=== PATIENT | female | born 1960 | race Caucasian/White ===

== ENCOUNTER → 2016-06-02 | Outpatient (CLI) | payer OTHER ==
[~2016-06-02] MED LIST: ACET-749 PO; ALT/25 PO; ATOR10TA88 PO; B-COCAP2 PO; CALC1CHW57 PO; CETI10TA10 PO; CLOTCRE33 TOP; CYAN10005 PO; DOXY100C76 PO; DULO60CA44 PO; ESTR1CRE PV; ESTR1CRE VAGRING; FLV1 PO; GLC/500 PO; INSU70IN2 SC; INSUINJ7 SC; LEVA1NEB19 INH; METO-157 PO; MOME200A INH; MONT1TAB3 PO; OMEG500C2 PO; OMEP20TA PO; PRED20TA PO; PREG225C PO; RANI300T2 PO; TORS20TA2 PO; TRIA0.1C20 TOP
[2016-06-02 13:12] LABS: ALT/SGPT 24 U/L (12-78); AST/SGOT 14 U/L (15-37); BLOOD UREA NITROGEN 13 mg/dl (7-18); BUN/CREATININE RATIO 16.4 (10-20); CALCIUM 8.4 mg/dl (8.5-10.1); CARBON DIOXIDE 28 mmol/L (21-32); CHLORIDE 108 mmol/L (98-107); CREATININE 0.79 mg/dl (0.60-1.20); GLUCOSE 113 mg/dl (70-99); POTASSIUM 4.2 mmol/L (3.5-5.1); SODIUM 144 mmol/L (136-145)
[2016-06-02 13:25] LABS: ALB/GLOB RATIO 1.1 (0.9-2); ALKALINE PHOSPHATASE 75 U/L (45-117); CHOLESTEROL 168 mg/dl (0-200); CHOLESTEROL/HDL RATIO 3.7; ESTIMATED AVERAGE GLUCOSE 148 mg/dl; HA1C FLAG Normal (Normal); HDL CHOLESTEROL 45 mg/dl; LDL CHOLESTEROL CALCULATED 104 mg/dl; THYROID STIMULATING HORMONE 0.866 uIu/ml (0.300-4.500); TRIGLYCERIDES 93 mg/dl (0-150); VERY LOW DENSITY LIPOPROT CALC 19 mg/dl
== END | disposition home or self-care (01) ==
LOC: C.LABPBG 10:31
PROVIDERS: ATTEND Neuromusculoskeletal Medicine & OMM
DX: E11.9 Type 2 diabetes mellitus without complications (principal)

== ENCOUNTER → 2016-09-01 | Outpatient (CLI) | payer OTHER ==
[~2016-09-01] MED LIST changes: +ATOR10TA82 PO; -ATOR10TA88 PO
[2016-09-02 07:32] LABS: ESTIMATED AVERAGE GLUCOSE 154 mg/dl; HA1C FLAG Normal (Normal)
== END | disposition home or self-care (01) ==
LOC: C.LABPBG 15:37
PROVIDERS: ATTEND Neuromusculoskeletal Medicine & OMM
DX: E11.9 Type 2 diabetes mellitus without complications (principal)

== ENCOUNTER → 2016-09-23 | Outpatient (CLI) | payer OTHER ==
--- NOTE | 2016-09-23 16:16 | MAMMOGRAPHY REPORT ---
BILATERAL DIGITAL SCREENING MAMMOGRAM TOMOSYNTHESIS WITH CAD: 09/23/2016 CLINICAL HISTORY: Routine screening. Patient has no complaints. TECHNIQUE: Breast tomosynthesis in addition to standard 2D mammography was performed. Current study was also evaluated with a Computer Aided Detection (CAD) system. COMPARISON: Comparison is made to exams dated: 08/17/2015 mammogram, 08/11/2014 mammogram, 08/07/2013 m ammogram, 07/27/2011 mammogram, 07/07/2010 mammogram, and 07/30/2012 mammogram. BREAST COMPOSITION: The tissue of both breasts is almost entirely fatty. FINDINGS: No suspicious masses, calcifications, or areas of architectural distortion are noted in ei ther breast. There has been no significant interval change compared to prior exams. IMPRESSION: ACR BI-RADS CATEGORY 1: NEGATIVE There is no mammographic evidence of malignancy. A 1 year screening mammogram is recommended. The pa tient will receive written notification of the results. Approximately 10% of breast cancers are not detected with mammography. A negative mammographic report should not delay biopsy if a clinically suggestive mass is present. Bernadine Carranza M.D. /:09/23/2016 15:23:33 Cable Assembler: Kylee CEDENO(R)(M), [facility] letter sent: Normal 1/2 BI-RADS Code: ACR BI-RADS Category 1: Negative
== END | disposition home or self-care (01) ==
LOC: C.MAMM 09:27
PROVIDERS: ATTEND Obstetrics & Gynecology
DX: Z12.31 Encounter for screening mammogram for malignant neoplasm of breast (principal)

== ENCOUNTER → 2016-12-01 | Outpatient (CLI) | payer OTHER ==
[~2016-12-01] MED LIST changes: -ATOR10TA82 PO; +ATOR10TA88 PO
[2016-12-01 12:36] LABS: ESTIMATED AVERAGE GLUCOSE 148 mg/dl; HA1C FLAG Normal (Normal)
== END | disposition home or self-care (01) ==
LOC: C.LABPBG 09:45
PROVIDERS: ATTEND Neuromusculoskeletal Medicine & OMM
DX: E11.9 Type 2 diabetes mellitus without complications (principal)

== ENCOUNTER → 2017-05-08 | Outpatient (CLI) | payer OTHER ==
[~2017-05-08] MED LIST changes: +ATOR10TA82 PO; -ATOR10TA88 PO; -B-COCAP2 PO; -CALC1CHW57 PO; +CHOLCAP5 PO; +CYAN100020 PO; -CYAN10005 PO; -DOXY100C76 PO; -ESTR1CRE VAGRING; +FLUT0.15; +FLUT1INH7 INH; -FLV1 PO; +GABA-112 PO; +GABA1CAP5 PO; +INSU1INJ SC; -INSUINJ7 SC; +LEVA45AE INH; +MELO7.5T5 PO; -MOME200A INH; +MULT-506 PO; -OMEG500C2 PO; -PRED20TA PO; -PREG225C PO; -RANI300T2 PO; +TIZA4CAP PO; -TRIA0.1C20 TOP; +TURM500T PO
[2017-05-08 12:26] LABS: ALBUMIN 3.4 gm/dl (3.4-5.0); ALT/SGPT 25 U/L (12-78); BLOOD UREA NITROGEN 13 mg/dl (7-18); CARBON DIOXIDE 26 mmol/L (21-32); CHOLESTEROL 161 mg/dl (0-200); CREATININE 0.73 mg/dl (0.60-1.20); GLUCOSE 169 mg/dl (70-99); HEMOGLOBIN A1C 6.7 % (4.5-5.6); POTASSIUM 4.4 mmol/L (3.5-5.1); SODIUM 140 mmol/L (136-145)
[2017-05-08 12:36] LABS: ALKALINE PHOSPHATASE 78 U/L (45-117); AST/SGOT 18 U/L (15-37); LDL CHOLESTEROL CALCULATED 100 mg/dl; TOTAL PROTEIN 6.7 gm/dl (6.4-8.2)
== END | disposition home or self-care (01) ==
LOC: C.LABPBG 08:47
PROVIDERS: ATTEND Family Medicine
DX: E11.9 Type 2 diabetes mellitus without complications (principal)

== ENCOUNTER → 2017-06-30 | Outpatient (CLI) | payer OTHER ==
[~2017-06-30] MED LIST changes: +GABA-1220 PO; -GABA1CAP5 PO
--- NOTE | 2017-06-30 07:38 | DIAGNOSTIC IMAGING REPORT ---
LUMBAR SPINE W/O CONTRAST HISTORY: Back pain. Radiculopathy. LUMBAR RADICULOPATHY TECHNIQUE: Multiplanar multisequence MRI of the lumbar spine was performed without the use of contrast. COMPARISON: None. FINDINGS: For the purpose of the report the L5-S1 disc space will be located on axial image 23 of 25. Normal signal characteristics of the vertebral bodies. Mild disc desiccation throughout the entire lumbar region. No evidence for subluxation. L1-L2: No significant central canal or neural foraminal narrowing. L2-L3: Mild broad-based disc herniation. Mild impact of the left central anterior thecal sac. Mild narrowing left neuroforamina. L3-L4: Broad-based bulging disc. Minimal impact anterior thecal sac. No significant narrowing of the neuroforamina. L4-L5: Mild broad-based disc bulge. Minimal impact left anterior thecal sac. Mild narrowing left neural foramina. L5-S1: Left lateral bulging disc. Moderate narrowing left neuroforamina. No significant impact upon the thecal sac. Moderate degenerative changes of posterior facets IMPRESSION: 1. Mild degenerative disc change throughout the entire lumbar region with moderate degenerative change of the posterior facets. 2. Broad-based bulging discs throughout the entire lumbar region with no evidence for major disc herniation or significant component of spinal stenosis. 3. Mild narrowing of the left neural foramina at L2-L3, L4-L5, and L5-S1. The above report was generated using voice recognition software. It may contain grammatical, syntax or spelling errors. Electronically signed by: Ted Duncan M.D. 06/30/2017 7:36 AM Dictated Date/Time: 06/30/2017 7:32 AM
== END | disposition home or self-care (01) ==
LOC: C.MRI 06:51
PROVIDERS: ATTEND Physician Assistant Medical
DX: M54.16 Radiculopathy, lumbar region (principal); M51.36 Other intervertebral disc degeneration, lumbar region

== ENCOUNTER 2021-01-18 15:27 | Inpatient (IN) ==
[2021-01-18] MEDS ORDERED: ACETAMINOPHEN 500 MG TAB PO STA (16:54)
[2021-01-18] MEDS ORDERED: dexAMETHasone 6 MG in SYRINGE 0 ML IV ONE (18:01)
[2021-01-18 18:31] LABS: Hematocrit (blood only) 39.3 % (37-47); Hemoglobin 12.8 g/dL (12.0-16.0); Mean Corpuscular Hemoglobin 26.8 pg (25-34); Mean Corpuscular Hgb Conc 32.6 g/dL (32-36); Mean Corpuscular Volume 82.4 fL (80-100); Mean Platelet Volume 10.9 fL (7.4-10.4); Platelet Count 176 K/uL (130-400); RDW Coefficient of Variation 14.4 % (11.5-14.5); RDW Standard Deviation 43.5 fL (36.4-46.3); Red Blood Count 4.77 M/uL (4.2-5.4); White Blood Count 12.68 K/uL (4.8-10.8)
[2021-01-18] MEDS ORDERED: DEXAMETHASONE SOD INJ 4 MG/ML VIAL ONE (18:32)
--- NOTE | 2021-01-18 18:32 | XRay Report ---
XR chest 1V portable HISTORY: +Covid, cough and SOB COMPARISON: Chest 06/28/2019. FINDINGS: There are low lung volumes. No pneumothorax. No pleural effusions. Cardiac silhouette is humphrey rderline enlarged. Patchy bilateral airspace opacities and interstitial thickening. IMPRESSION: Patchy bilateral airspace opacities and interstitial thickening. This favors a viral pneumonia. ACT 112: Negative or not required by law. Electronically signed by: Rick Block M.D. 01/18/2021 6:31 PM
--- NOTE | 2021-01-18 18:44 | Emergency Department Note ---
History of Present Illness General Chief complaint: Shortness of Breath/Dyspnea History of Present Illness Kylee Harrington is a 60 year old female with history of [] Home Medications Medication Instructions Recorded Confirmed Type fluticasone propionate 50 2 sprays INTNAS QAM 02/08/18 12/23/20 History mcg/actuation nasal spray,suspension (Flonase Allergy Relief) cholecalciferol (vitamin D3) 125 5,000 units PO QAM cap 12/04/18 12/23/20 History mcg (5,000 unit) capsule gentamicin 0.1 % topical cream 1 appln TOPICAL DAILY PRN #1 gm 12/04/18 12/23/20 History acetaminophen 500 mg capsule 500 mg PO TID PRN 12/06/19 12/23/20 History clotrimazole-betamethasone 1 1 appln TOPICAL BID PRN 12/06/19 12/23/20 History %-0.05 % topical cream esomeprazole magnesium 40 mg 40 mg PO BID 12/06/19 12/23/20 History capsule,delayed release (Nexium) coQ10 (ubiquinol) 200 mg capsule 200 mg PO BID 02/13/20 12/23/20 History vitamin B complex 1 tab PO BID 02/13/20 12/23/20 History famotidine 20 mg tablet 20 mg PO BID tab 04/06/20 12/23/20 History glucagon 3 mg/actuation nasal 3 mg INTRANASAL ONCE #2 ea 04/21/20 12/23/20 Rx spray (Baqsimi) aspirin 81 mg tablet,delayed 81 mg PO DAILY #30 tab 05/01/20 12/23/20 Rx release nitroglycerin 0.4 mg sublingual 0.4 mg SUBLINGUAL Q5M PRN #30 tab 05/01/20 12/23/20 Rx tablet pen needle, diabetic 31 gauge x #100 ea 06/10/20 12/23/20 Rx 5/16" (BD Ultra-Fine Short Pen Needle) torsemide 20 mg tablet 10 mg PO QAM #45 tab 07/21/20 12/23/20 Rx erythromycin 500 mg tablet 500 mg PO TID tab 08/24/20 12/23/20 History tramadol 50 mg tablet See Rx Instructions PO TID PRN #30 10/20/20 12/23/20 Rx tab duloxetine 60 mg capsule,delayed 60 mg PO DAILY cap 10/30/20 12/23/20 History release flash glucose scanning reader #1 ea 10/30/20 12/23/20 History (FreeStyle Jeremy 2 [place]) flash glucose sensor (FreeStyle #1 ea 10/30/20 12/23/20 History Jeremy 2 Sensor) blood sugar diagnostic (OneTouch ea 11/09/20 12/23/20 History Ultra Blue Test Strip) ibuprofen 600 mg tablet 600 mg PO TID PRN 11/09/20 12/23/20 History fluconazole 150 mg tablet 150 mg PO .COMPLEX #3 tab 11/19/20 12/23/20 Rx (Diflucan) tizanidine 4 mg capsule 4 mg PO HS PRN #30 cap 11/19/20 12/23/20 Rx atorvastatin 80 mg tablet 80 mg PO HS #90 tab 11/20/20 12/23/20 Rx clopidogrel 75 mg tablet 75 mg PO DAILY #90 tab 11/20/20 12/23/20 Rx gabapentin 400 mg capsule 400 mg PO TID #90 cap 11/20/20 12/23/20 Rx conjugated estrogens 0.625 mg/gram 0.625 mg VAGINAL WEEKLY #30 g 11/23/20 12/23/20 Rx vaginal cream (Premarin) montelukast 10 mg tablet 10 mg PO QPM #90 tab 11/30/20 12/23/20 Rx (Singulair) cetirizine 10 mg tablet (Zyrtec) 10 mg PO DAILY PRN 12/23/20 12/23/20 History dextromethorphan-guaifenesin 10 1 tab-cap PO Q8H PRN 12/23/20 12/23/20 History mg-200 mg capsule (Coricidin HBP Chest Congestion-Cough) insulin glargine 100 unit/mL (3 63 unit SUBCUT DAILY box 12/23/20 12/23/20 Hist ory mL) subcutaneous pen (Lantus Solostar U-100 Insulin) ramipril 2.5 mg capsule (Altace) 2.5 mg PO PM #90 cap 12/30/20 Rx insulin regular human 100 unit/mL See Rx Instructions SUBCUT TID #30 01/01/21 Rx (3 mL) subcutaneous pen (Novolin R ml Flexpen) fluticasone furoate 200 1 inh INHALATION QAM #60 ea 01/12/21 Rx mcg-vilanterol 25 mcg/dose inhalation powder (Breo Ellipta) metformin 500 mg tablet,extended 1,000 mg PO BID #180 tab 01/12/21 Rx release 24 hr levalbuterol HCl 1.25 mg/3 mL 1.25 mg INH TID PRN #72 ml 01/14/21 Rx solution for nebulization (Xopenex) levalbuterol tartrate 45 1 - 2 puff INH Q4H PRN #15 gm 01/14/21 Rx mcg/actuation aerosol inhaler (Xopenex HFA) metoclopramide HCl 10 mg tablet 10 mg PO QID #120 tab 01/14/21 Rx (Reglan) Allergies Allergy/AdvReac Type Severity Reaction Status Date / Time Sulfa (Sulfonamide Allergy Unknown RASH Verified 12/23/20 16:14 Antibiotics) fluticasone AdvReac Intermediate Tachycardia, Verified 12/23/20 16:14 [From Advair Diskus] palpitations salmeterol AdvReac Intermediate Tachycardia, Verified 12/23/20 16:14 [From Advair Diskus] palpitations Past Med/Surg History Medical History Anxiety Arthritis, lumbar spine Asthma CAD (coronary artery disease) Carpal tunnel syndrome of right wrist Charcot's joint of foot Chronic venous insufficiency Depression Diabetes mellitus, type 2 Endometriosis Fibromyalgia Gastroparesis GERD (gastroesophageal reflux disease) History of MRSA infection History of pneumococcal pneumonia Hyperlipidemia Hypertension Lumbar disc disease Osteoarthritis PCOS (polycystic ovarian syndrome) Peripheral neuropathy Sciatic pain Seasonal allergies Trigger thumb of right hand Type 2 diabetes mellitus with diabetic neuropathy Surgical History H/O: hysterectomy History of carpal tunnel release History of esophagogastroduodenoscopy (EGD) History of heart artery stent (05/04/20) S/P repair of ventral hernia S/P tonsillectomy and adenoidectomy S/P total hysterectomy and bilateral salpingo-oophorectomy S/P trigger finger release Family History Father Diabetes Coronary heart disease Hx of CABG Mother Breast cancer S/P CABG (coronary artery bypass graft) Sister Breast cancer Denies family history of Ovarian cancer Prostate cancer Myocardial infarction Colorectal cancer Social History Smoking Status: Unknown if ever smoked Tobacco Type: Cigarettes Age Started Using Tobacco: 21; Age Quit Using Tobacco: 25; packs per day: 1; Years Smoked: 4; Second Hand Exposure: No; Hx Alcohol Use: Yes Alcohol type: wine Alcohol Intake Frequency: Monthly or Less Hx Substance Use: No Preferred Language: Mauritian Communication Ability: Effective Visual Impairment: No Limitations Hearing Ability: Normal 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 Beliefs That Will Affect Care: None marital status: Current Living Situation: Spouse Current Living Situation Comment: , who is a quadraplegic current occupational status: employed Feels Safe at Home: Yes Childhood Exposure to Second-Hand Smoke: Yes caffeine: Yes during the past year weight has: remained stable Dental Care, Regularly: Yes Physical Activity Frequency: 1-2 Times per Week Physical Activity Frequency Comment: walking,gym Seatbelt Use: always Sunscreen Use: No Assistive Devices: Cane and Glasses Physical Exam Vital Signs Vital Signs - 24 hr 01/18/21 15:47 01/18/21 17:13 Temperature 37.7 C H Temperature Source Oral Pulse Rate 100 H Respiratory Rate 20 Respiratory Effort / Characteristics Non-Labored Respiratory Depth Normal Respiratory Pattern Regular Blood Pressure 114/52 L Blood Pressure Mean 72 Pulse Oximetry 93 85 L Oxygen Delivery Method Nasal Cannula Room Air Oxygen Flow Rate 2 Sepsis Recent Fever Within 48 Hours Yes Sepsis New/Unexplained Change in Mental Status No Sepsis Action Taken by Nursing No Action Required Pulse Oximetry Post Tiitration 94 Course Administered Medications Discontinued Medications Acetaminophen (Acetaminophen 500 Mg Tab) 1,000 mg PO NOW STA Stop: 01/18/21 16:55 Last Admin: 01/18/21 18:36 Dose: 1,000 mg Documented by: [id number] Dexamethasone (Dexamethasone Sod Inj 4 Mg/Ml Vial) Confirm Administered Dose 8 mg .ROUTE .STK-MED ONE Stop: 01/18/21 18:33 Last Admin: 01/18/21 18:37 Dose: 6 mg Documented by: [id number] Dexamethasone 6 mg/ Syringe 1.5 mls @ 1 mls/min IV ONE ONE Stop: 01/18/21 18:02 Last Admin: 01/18/21 18:39 Dose: 1 mls/min Documented by: [id number] Medical Decision Making Laboratory Data Result diagrams: 01/18/21 18:15 01/18/21 18:15 Lab Results 01/18/21 01/18/21 01/18/21 Range/Units 18:15 18:15 18:15 WBC 12.68 H (4.8-10.8) K/uL RBC 4.77 (4.2-5.4) M/uL Hgb 12.8 (12.0-16.0) g/dL Hct 39.3 (37-47) % MCV 82.4 (80-100) fL MCH 26.8 (25-34) pg MCHC 32.6 (32-36) g/dL RDW Std Deviation 43.5 (36.4-46.3) fL RDW Coeff of Michael 14.4 (11.5-14.5) % Plt Count 176 (130-400) K/uL MPV 10.9 H (7.4-10.4) fL Immature Gran % (Auto) 0.3 % Neut % (Auto) 85.9 % Lymph % (Auto) 8.2 % [place] % (Auto) 5.6 % Eos % (Auto) 0.0 % Baso % (Auto) 0.0 % Neut # (Auto) 10.89 H (1.4-6.5) K/uL Lymph # (Auto) 1.04 L (1.2-3.4) K/uL [place] # (Auto) 0.71 H (0.11-0.59) K/uL Eos # (Auto) 0.00 (0-0.5) K/uL Baso # (Auto) 0.00 (0-0.2) K/uL Immature Gran # (Auto) 0.04 H (0.00-0.02) K/uL Polychromasia 1+ VBG pH 7.40 (7.36-7.41) VBG pCO2 43 (38-50) mmHg VBG pO2 24 mmHg VBG HCO3 26 mmol/L VBG O2 Saturation < 60.0 % VBG Base Excess 1.2 mEq/L Barometric Pressure 728.4 mm/Hg Lactate 1.6 (0.4-2.0) mmol/L Imaging Data Radiologist's Impression: Chest X-Ray 01/18/21 16:54 XR chest 1V portable HISTORY: +Covid, cough and SOB COMPARISON: Chest 06/28/2019. FINDINGS: There are low lung volumes. No pneumothorax. No pleural effusions. Cardiac silhouette is borderline enlarged. Patchy bilateral airspace opacities and interstitial thickening. IMPRESSION: Patchy bilateral airspace opacities and interstitial thickening. This favors a viral pneumonia. ACT 112: Negative or not required by law. Electronically signed by: Rick Block M.D. 01/18/2021 6:31 PM Discharge Plan Visit Data Chief Complaint: Shortness of Breath/Dyspnea ED Provider: [facility] Midlevel Provider: Megan Hogan Forms Stand Alone Forms: [facility] [employer] Prescriptions Prescriptions: No Action fluticasone propionate [Flonase Allergy Relief] 50 mcg/actuation spray,suspension 2 sprays INTNAS QAM RF: 0 torsemide 20 mg tablet 10 mg PO QAM Qty: 45 RF: 1 gabapentin 400 mg capsule 400 mg PO TID Qty: 90 RF: 5 montelukast [Singulair] 10 mg tablet 10 mg PO QPM Qty: 90 RF: 3 ramipril [Altace] 2.5 mg capsule 2.5 mg PO PM Qty: 90 RF: 1 Novolin R Flexpen 100 unit/mL (3 mL) insulin pen See Rx Instructions subcut TID Qty: 30 RF: 1 Breo Ellipta 200-25 mcg/dose blister with device 1 inh inhalation QAM Qty: 60 RF: 5 metformin 500 mg tablet extended release 24 hr 1,000 mg PO BID Qty: 180 RF: 1 levalbuterol HCl [Xopenex] 1.25 mg/3 mL solution for nebulization 1.25 mg INH TID PRN (Reason: shortness of breath or wheezing) Qty: 72 RF: 3 levalbuterol tartrate [Xopenex HFA] 45 mcg/actuation HFA aerosol inhaler 1 - 2 puff INH Q4H PRN (Reason: shortness of breath) Qty: 15 RF: 3 metoclopramide HCl [Reglan] 10 mg tablet 10 mg PO QID Qty: 120 RF: 5 duloxetine 60 mg capsule,delayed release(DR/EC) 60 mg PO DAILY RF: 0 (DME) FreeStyle Jeremy 2 Sensor Kit See Rx Instructions .ROUTE .MEDSUPPLY Qty: 1 RF: 0 (DME) FreeStyle Jeremy 2 [place] Misc See Rx Instructions .ROUTE .MEDSUPPLY Qty: 1 RF: 0 tramadol 50 mg tablet See Rx Instructions PO TID PRN (Reason: pain) Qty: 30 RF: 0 (DME) OneTouch Ultra Blue Test Strip Strip See Rx Instructions .ROUTE .MEDSUPPLY RF: 0 ibuprofen 600 mg tablet 600 mg PO TID PRNRF: 0 atorvastatin 80 mg tablet 80 mg PO HS Qty: 90 RF: 3 clopidogrel 75 mg tablet 75 mg PO DAILY Qty: 90 RF: 3 Lantus Solostar U-100 Insulin 100 unit/mL (3 mL) insulin pen 63 unit subcut DAILY RF: 0 (DME) pen needle, diabetic [BD Ultra-Fine Short Pen Needle] 31 gauge x 5/16" needle See Rx Instructions .ROUTE .MEDSUPPLY Qty: 100 RF: 3 fluconazole [Diflucan] 150 mg tablet 150 mg PO .COMPLEX Qty: 3 RF: 0 tizanidine 4 mg capsule 4 mg PO HS PRN (Reason: Spasms) Qty: 30 RF: 1 Premarin 0.625 mg/gram cream 0.625 mg Vaginal WEEKLY Qty: 30 RF: 0 Coricidin HBP Chest Matthew-Cough 10-200 mg capsule 1 tab-cap PO Q8H PRNRF: 0 cetirizine [Zyrtec] 10 mg tablet 10 mg PO DAILY PRNRF: 0 Baqsimi 3 mg/actuation spray,non-aerosol 3 mg intranasal ONCE Qty: 2 RF: 5 aspirin 81 mg tablet,delayed release (DR/EC) 81 mg PO DAILY Qty: 30 RF: 11 nitroglycerin 0.4 mg tablet, sublingual 0.4 mg sublingual Q5M PRN (Reason: chest pain) Qty: 30 RF: 3 erythromycin 500 mg tablet 500 mg PO TID RF: 0 cholecalciferol (vitamin D3) 5,000 unit capsule 5,000 units PO QAM RF: 0 gentamicin 0.1 % cream 1 appln topical DAILY PRN (Reason: AFFECTED AREA) Qty: 1 RF: 0 acetaminophen 500 mg Capsule 500 mg PO TID PRN (Reason: Pain) RF: 0 esomeprazole magnesium [Nexium] 40 mg capsule,delayed release(DR/EC) 40 mg PO BID RF: 0 clotrimazole-betamethasone 1-0.05 % cream 1 appln topical BID PRN (Reason: Skin Irritation) RF: 0 vitamin B complex Tablet 1 tab PO BID RF: 0 coQ10 (ubiquinol) 200 mg Capsule 200 mg PO BID RF: 0 famotidine 20 mg tablet 20 mg PO BID RF: 0 Referrals Referrals: Hoa Mcneil DO [Primary Care Provider] -
[2021-01-18 18:52] LABS: Immature Granulocytes # (auto) 0.04 K/uL (0.00-0.02); Immature Granulocytes % (auto) 0.3 %; Lymphocytes # (auto) 1.04 K/uL (1.2-3.4); Lymphocytes % (auto) 8.2 %; Monocytes # (auto) 0.71 K/uL (0.11-0.59); Monocytes % (auto) 5.6 %; Neutrophils # (auto) 10.89 K/uL (1.4-6.5); Neutrophils % (auto) 85.9 %; Polychromasia 1+
[2021-01-18 18:53] LABS: Base Excess VBG 1.2 mEq/L; HCO3 VBG 26 mmol/L; Oxygen Saturation VBG < 60.0 %; PCO2 VBG 43 mmHg (38-50); PO2 VBG 24 mmHg
[2021-01-18 19:20] LABS: Appearance Urine Cloudy (Clear); Bacteria Urine Automated 1+ (Negative); Bilirubin Urine Negative (Negative); Blood Urine Trace (Negative); Color Urine Dark Yellow; Epithelial Cell Urine Auto >30 /lpf (0-5); Glucose Urine UA Negative (Negative); Ketones Urine Trace (Negative); Leukocyte Esterase Urine Negative (Negative); Nitrite Urine Negative (Negative); Protein Urine 2+ (Negative); Specific Gravity Urine 1.019 (1.000-1.030); Urobilinogen Urine Negative (Negative); pH Urine 5.5 (4.5-7.5)
[2021-01-18 19:27] LABS: Alanine Aminotransferase 27 U/L (12-78); Albumin Globulin Ratio 0.5 (0.9-2); Albumin Level 2.7 gm/dl (3.4-5.0); Alkaline Phosphatase 73 U/L (45-117); Aspartate Aminotransferase 36 U/L (15-37); BUN Creatinine Ratio 10.3 (10-20); Bilirubin,Total 0.4 mg/dl (0.2-1); Blood Urea Nitrogen 12 mg/dl (7-18); Calcium 8.8 mg/dl (8.5-10.1); Carbon Dioxide 23 mmol/L (21-32); Chloride 102 mmol/L (98-107); Est GFR (Non-African American) 53.5 ml/min; Glucose 241 mg/dl (70-99); Potassium 3.9 mmol/L (3.5-5.1); Sodium 134 mmol/L (136-145); Total Protein 7.7 gm/dl (6.4-8.2); Troponin I < 0.015 ng/ml (0-0.045)
[2021-01-18 19:34] LABS: RBC Urine Automated 0-4 /hpf (0-4)
[2021-01-18] MEDS ORDERED: REMDESIVIR 200 MG in SODIUM CHLORIDE 0.9% 210 ML IV STA (20:40)
--- NOTE | 2021-01-18 20:49 | History & Physical Report ---
Date of Service January 18, 2021 Assessment & Plan (1) Pneumonia due to COVID-19 virus: Plan: Kylee Harrington is a 60-year-old female with PMH of DM2 with peripheral neuropathy, HTN, HLD, CAD, depression,, osteoarthritis, GERD, asthma, fibromyalgia, seasonal allergies who comes to [facility] due to worsening condition in the setting of her recent COVID-19 diagnosis. COVID-19 Pneumonia - Initially diagnosed 01/11/21 per patient - CXR with patchy bilateral opacities and interstitial thickening, favoring a viral pneumonia. - CT chest pending - COVID-19 retest pending - Requiring 3L NC to maintain O2 sat--continue O2 supplementation as needed - Diagnosis less than 10 days ago and creatinine clearance >30, meets criteria for remdesivir - Remdesivir 200mg IV x1 now, then 100mg IV daily x4 days - Decadron 6mg IV x1 in ED, continue 6mg IV daily x 10 days -Duonebs prn - Incentive spirometry - Admit to Telemetry - COVID-19 isolation precautions DM2 with Diabetic Neuropathy - Hold home insulin and metformin - Glycemic consult for BSG management while admitted - Continue home gabapentin Hypertension - Continue home ramipril CAD/Hyperlipidemia - Continue ASA, atorvastatin, Plavix Asthma/Allergic Rhinitis - Continue home, montelukast, Breo Ellipta, Flonase - duonebs prn Depression/Anxiety -Continue home duloxetine GERD -Continue home regimen of famotidine and PPI per hospital formulary DVT ppx: Lovenox 40mg SQ daily Dispo: Telemetry FENGI: HH, DM2 CODE: FULL CODE (2) Type 2 diabetes mellitus with diabetic neuropathy: (3) CAD (coronary artery disease): (4) Hypertension: (5) Hyperlipidemia: (6) Depression: (7) Anxiety: (8) GERD (gastroesophageal reflux disease): (9) Asthma: (10) Fibromyalgia: (11) Seasonal allergies: History of Present Illness Primary Care Provider: Hoa Mcneil DO Kylee Harrington is a 60-year-old female with PMH of DM2 with peripheral neuropathy, HTN, HLD, CAD, depression,, osteoarthritis, GERD, asthma, fibromyalgia, seasonal allergies who comes to [facility] due to worsening symptoms in the setting of her recent COVID-19 diagnosis. She was diagnosed with COVID-19 last 01/11/2021. She mentions that since her diagnosis she has been febrile and steadily worsening. Specifically, she says she has felt much weaker than usual to the point of needing to hold on to the martin for ambulation. She has also had worsening dry cough and shortness of breath. Reports being very sweaty. Also has diarrhea and reports various episodes of urinary incontinence. Her is also exhibiting symptoms and came into the ED today with with her, they are both in the room upon my evaluation. The patient and her are both fully COVID vaccinated with Pfizer vaccine as of May 2020. Upon arrival at the emergency room, patient was found to have oxygen saturation of 85% on room air. She was started on oxygen via nasal cannula, and on my evaluation is saturating at 97% on 3 L. She received acetaminophen 1000 mg, Decadron 6 mg IV x1. Chest x-ray in the ED showed patchy bilateral airspace opacities and interstitial thickening, favoring a viral pneumonia. Lab work showed a white count of 12.68, normal hemoglobin, normal platelets. VBG was unremarkable. Electrolytes nonconcerning, troponin negative, lactate normal 1.6. Allergies Allergy/AdvReac Type Severity Reaction Status Date / Time Sulfa (Sulfonamide Allergy Intermediate RASH Verified 01/19/21 07:25 Antibiotics) fluticasone AdvReac Intermediate Tachycardia, Verified 01/18/21 20:03 [From Advair Diskus] palpitations salmeterol AdvReac Intermediate Tachycardia, Verified 01/18/21 20:03 [From Advair Diskus] palpitations Home Medications Medication Instructions Recorded Confirmed Type fluticasone propionate 50 2 sprays INTNAS QAM 02/08/18 01/18/21 History mcg/actuation nasal spray,suspension (Flonase Allergy Relief) cholecalciferol (vitamin D3) 125 5,000 units PO QAM cap 12/04/18 01/18/21 History mcg (5,000 unit) capsule gentamicin 0.1 % topical cream 1 appln TOPICAL DAILY PRN #1 gm 12/04/18 01/18/21 History acetaminophen 500 mg capsule 1,000 mg PO TID PRN 12/06/19 01/18/21 History clotrimazole-betamethasone 1 1 appln TOPICAL BID PRN 12/06/19 01/18/21 History %-0.05 % topical cream esomeprazole magnesium 40 mg 40 mg PO BID 12/06/19 01/18/21 History capsule,delayed release (Nexium) coQ10 (ubiquinol) 200 mg capsule 200 mg PO BID 02/13/20 01/18/21 History vitamin B complex 1 tab PO BID 02/13/20 01/18/21 History famotidine 20 mg tablet 20 mg PO BID tab 04/06/20 01/18/21 History glucagon 3 mg/actuation nasal 3 mg INTRANASAL ONCE #2 ea 04/21/20 01/18/21 Rx spray (Baqsimi) aspirin 81 mg tablet,delayed 81 mg PO DAILY #30 tab 05/01/20 01/18/21 Rx release nitroglycerin 0.4 mg sublingual 0.4 mg SUBLINGUAL Q5M PRN #30 tab 05/01/20 01/18/21 Rx tablet torsemide 20 mg tablet 10 mg PO QAM #45 tab 07/21/20 01/18/21 Rx erythromycin 500 mg tablet 500 mg PO TID tab 08/24/20 01/18/21 History tramadol 50 mg tablet See Rx Instructions PO TID PRN #30 10/20/20 01/18/21 Rx tab duloxetine 60 mg capsule,delayed 60 mg PO DAILY cap 10/30/20 01/18/21 History release ibuprofen 600 mg tablet 600 mg PO TID PRN 11/09/20 01/18/21 History tizanidine 4 mg capsule 4 mg PO HS PRN #30 cap 11/19/20 01/18/21 Rx atorvastatin 80 mg tablet 80 mg PO HS #90 tab 11/20/20 01/18/21 Rx clopidogrel 75 mg tablet 75 mg PO DAILY #90 tab 11/20/20 01/18/21 Rx gabapentin 400 mg capsule 400 mg PO TID #90 cap 11/20/20 01/18/21 Rx conjugated estrogens 0.625 mg/gram 0.625 mg VAGINAL WEEKLY #30 g 11/23/20 01/18/21 Rx vaginal cream (Premarin) montelukast 10 mg tablet 10 mg PO QPM #90 tab 11/30/20 01/18/21 Rx (Singulair) cetirizine 10 mg tablet (Zyrtec) 10 mg PO DAILY PRN 12/23/20 01/18/21 History dextromethorphan-guaifenesin 10 1 tab-cap PO Q8H PRN 12/23/20 01/18/21 History mg-200 mg capsule (Coricidin HBP Chest Congestion-Cough) insulin glargine 100 unit/mL (3 63 unit SUBCUT QAM box 12/23/20 01/18/21 History mL) subcutaneous pen (Lantus Solostar U-100 Insulin) ramipril 2.5 mg capsule (Altace) 2.5 mg PO PM #90 cap 12/30/20 01/18/21 Rx insulin regular human 100 unit/mL See Rx Instructions SUBCUT TID #30 01/01/21 01/18/21 Rx (3 mL) subcutaneous pen (Novolin R ml Flexpen) fluticasone furoate 200 1 inh INHALATION QAM #60 ea 01/12/21 01/18/21 Rx mcg-vilanterol 25 mcg/dose inhalation powder (Breo Ellipta) metformin 500 mg tablet,extended 1,000 mg PO BID #180 tab 01/12/21 01/18/21 Rx release 24 hr levalbuterol HCl 1.25 mg/3 mL 1.25 mg INH TID PRN #72 ml 01/14/21 01/18/21 Rx solution for nebulization (Xopenex) levalbuterol tartrate 45 1 - 2 puff INH Q4H PRN #15 gm 01/14/21 01/18/21 Rx mcg/actuation aerosol inhaler (Xopenex HFA) metoclopramide HCl 10 mg tablet 10 mg PO QID #120 tab 01/14/21 01/18/21 Rx (Reglan) Past Med/Surg History Medical History Anxiety Arthritis, lumbar spine Asthma CAD (coronary artery disease) Abnormal Dobutamine stress echo led to cardiac cath on 05/04/20 and PCI of Mid LCx with 2 SUN's Carpal tunnel syndrome of right wrist hx Charcot's joint of foot left Chronic venous insufficiency wears support hose Depression Diabetes mellitus, type 2 Endometriosis Fibromyalgia Gastroparesis GERD (gastroesophageal reflux disease) History of MRSA infection History of pneumococcal pneumonia Hyperlipidemia Hypertension Lumbar disc disease Osteoarthritis PCOS (polycystic ovarian syndrome) Peripheral neuropathy upper and lower extremities Sciatic pain right sided pain currently Seasonal allergies Trigger thumb of right hand hx Type 2 diabetes mellitus with diabetic neuropathy Surgical History H/O: hysterectomy History of carpal tunnel release History of esophagogastroduodenoscopy (EGD) History of heart artery stent (05/04/20) S/P repair of ventral hernia S/P tonsillectomy and adenoidectomy S/P total hysterectomy and bilateral salpingo-oophorectomy S/P trigger finger release Family History Father Diabetes Coronary heart disease Hx of CABG Mother Breast cancer S/P CABG (coronary artery bypass graft) Sister Breast cancer Denies family history of Ovarian cancer Prostate cancer Myocardial infarction Colorectal cancer Social History Smoking Status: Former smoker Tobacco Type: Cigarettes Age Started Using Tobacco: 21; Age Quit Using Tobacco: 25; packs per day: 1; Years Smoked: 4; Second Hand Exposure: No; Do You Dip or Chew Tobacco: No; Tobacco Cessation Education Requested by Patient: No Hx Alcohol Use: Yes Alcohol type: wine Alcohol Intake Frequency: Monthly or Less Hx Substance Use: No Preferred Language: Turkish Communication Ability: Effective Visual Impairment: No Limitations Hearing Ability: Normal 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 Beliefs That Will Affect Care: None marital status: Current Living Situation: Family Current Living Situation Comment: , who is a quadraplegic current occupational status: employed Other Information That Helps Us Care for You: No Feels Safe at Home: Yes Safety Concerns: Feels Safe At This Time Childhood Exposure to Second-Hand Smoke: Yes caffeine: Yes during the past year weight has: remained stable Dental Care, Regularly: Yes Physical Activity Frequency: 1-2 Times per Week Physical Activity Frequency Comment: walking,gym Seatbelt Use: always Sunscreen Use: No Assistive Devices: Glasses and Oxygen - Continuous Review of Systems Constitutional: as per Subjective / HPI Respiratory: as per Subjective / HPI Cardiovascular: no chest pain and no palpitations Gastrointestinal: no nausea and no vomiting Genitourinary: + urinary incontinence Neurologic: no numbness and no paresthesia Physical Exam Physical Exam: GENERAL: A&Ox3. NAD. HEENT: PERRL, EOMI. Moist mucous membranes. NECK: No JVD. No lymphadenopathy. CHEST/LUNGS: Breathing comfortably on NC. Gets SOB with movement. Bilateral crackles throughout. No wheezes, rales, rhonchi. Coughing intermittently throughout evaluation. HEART: RRR. No m/g/r. No carotid bruits. ABDOMEN: NT/ND, soft. BS+ x4 EXTREMITIES: No cyanosis, no clubbing, no edema SKIN: Warm and dry. No rashes or lesions. PSYCHIATRIC: Euthymic affect, no SI, no pressured speech, no hallucinations NEUROLOGIC: No FND. CN II-XII grossly intact. Results & Data Results & Data ([facility]) Vital Signs (Past 12 Hours) Vital Signs Temp Pulse Resp BP Pulse Ox 01/18/21 17:13 85 L 01/18/21 15:47 37.7 C H 100 H 20 114/52 L 93 Supervising Physician Co-Signing Physician Notes Attending addendum: I have physically seen this patient, have supervised the medical residents activities, and agree with the H&P unless as otherwise noted. Assessment and Plan: Pneumonia due to COVID-19 virus with hypoxia- Pulse ox noted to be 85% on room air Nasal cannula oxygen, titrate to keep pulse ox 90 to 94% Dexamethasone 6 mg IV every morning Remdesivir IV per protocol Azithromycin 500 mg IV daily Duonebs every 4 hours while awake and every 2 hours when necessary. Guaifenesin extended release 1200 mg p.o. twice daily Vitamin D 1000 international units p.o. daily Zinc sulfate 220 mg p.o. 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 transplanted heart: [place] heart Qualified Code(s): I25.10 - Atherosclerotic heart disease of [place] coronary artery without angina pectoris (3) Hyperlipidemia Hyperlipidemia type: mixed hyperlipidemia Qualified Code(s): E78.2 - Mixed hyperlipidemia (4) Hypertension Hypertension type: essential hypertension Qualified Code(s): I10 - Essential (primary) hypertension
--- NOTE | 2021-01-18 20:54 | Emergency Department Note ---
History of Present Illness General Chief complaint: Shortness of Breath/Dyspnea History of Present Illness Kylee Harrington is a 60 year old female with history including but not limited to CAD s/p cardiac stent placement x2 on bASA and Plavix, DM2, DLD, venous insufficiency, fibromyalgia, gastroparesis, GERD, pneumonia among others listed below who presents to the Emergency Department for evaluation of worsening cough and shortness of breath since being diagnosed with Covid19 one week prior to arrival. The patient states that she first began with flu-like symptoms on 01/12/2021 including fever/chills, cough, generalized body aches, and loss of continence of her urine. The patient visited her PCP at the onset of her symptoms and tested positive for Covid19 that day. Since then, she has been resting at home and has attempted to take Tylenol without relief of her symptoms. She has also developed worsening fatigue and states that she feels very shaky, making it hard for her to walk. Today, she states that her cough got so bad that she was having difficulty catching her breath. Due to her worsening symptoms, she called EMS to bring her to the hospital for further evaluation. In route to the hospital, the patient was noted to be hypoxic on room air and was placed on 2 L of O2 via NC. This was removed at bedside while she was talking to me, and her sats dropped to 85%. On replacement of the 2 L of O2 her saturations did improve back up to the mid 90s. During exam, the patient was continuously coughing and having difficulty talking due to this. She denied being in significant pain however she just felt short of breath, tired, and shaky. She denied headache, abdominal pain, nausea, vomiting, diarrhea, loss of taste/smell or other acute symptoms. Home Medications Medication Instructions Recorded Confirmed Type fluticasone propionate 50 2 sprays INTNAS QAM 02/08/18 01/18/21 History mcg/actuation nasal spray,suspension (Flonase Allergy Relief) cholecalciferol (vitamin D3) 125 5,000 units PO QAM cap 12/04/18 01/18/21 History mcg (5,000 unit) capsule gentamicin 0.1 % topical cream 1 appln TOPICAL DAILY PRN #1 gm 12/04/18 01/18/21 History acetaminophen 500 mg capsule 1,000 mg PO TID PRN 12/06/19 01/18/21 History clotrimazole-betamethasone 1 1 appln TOPICAL BID PRN 12/06/19 01/18/21 History %-0.05 % topical cream esomeprazole magnesium 40 mg 40 mg PO BID 12/06/19 01/18/21 History capsule,delayed release (Nexium) coQ10 (ubiquinol) 200 mg capsule 200 mg PO BID 02/13/20 01/18/21 History vitamin B complex 1 tab PO BID 02/13/20 01/18/21 History famotidine 20 mg tablet 20 mg PO BID tab 04/06/20 01/18/21 History glucagon 3 mg/actuation nasal 3 mg INTRANASAL ONCE #2 ea 04/21/20 01/18/21 Rx spray (Baqsimi) aspirin 81 mg tablet,delayed 81 mg PO DAILY #30 tab 05/01/20 01/18/21 Rx release nitroglycerin 0.4 mg sublingual 0.4 mg SUBLINGUAL Q5M PRN #30 tab 05/01/20 01/18/21 Rx tablet torsemide 20 mg tablet 10 mg PO QAM #45 tab 07/21/20 01/18/21 Rx erythromycin 500 mg tablet 500 mg PO TID tab 08/24/20 01/18/21 History tramadol 50 mg tablet See Rx Instructions PO TID PRN #30 10/20/20 01/18/21 Rx tab duloxetine 60 mg capsule,delayed 60 mg PO DAILY cap 10/30/20 01/18/21 History release ibuprofen 600 mg tablet 600 mg PO TID PRN 11/09/20 01/18/21 History tizanidine 4 mg capsule 4 mg PO HS PRN #30 cap 11/19/20 01/18/21 Rx atorvastatin 80 mg tablet 80 mg PO HS #90 tab 11/20/20 01/18/21 Rx clopidogrel 75 mg tablet 75 mg PO DAILY #90 tab 11/20/20 01/18/21 Rx gabapentin 400 mg capsule 400 mg PO TID #90 cap 11/20/20 01/18/21 Rx conjugated estrogens 0.625 mg/gram 0.625 mg VAGINAL WEEKLY #30 g 11/23/20 0 01/18/21 Rx vaginal cream (Premarin) montelukast 10 mg tablet 10 mg PO QPM #90 tab 11/30/20 01/18/21 Rx (Singulair) cetirizine 10 mg tablet (Zyrtec) 10 mg PO DAILY PRN 12/23/20 01/18/21 History dextromethorphan-guaifenesin 10 1 tab-cap PO Q8H PRN 12/23/20 01/18/21 History mg-200 mg capsule (Coricidin HBP Chest Congestion-Cough) insulin glargine 100 unit/mL (3 63 unit SUBCUT QAM box 12/23/20 01/18/21 History mL) subcutaneous pen (Lantus Solostar U-100 Insulin) ramipril 2.5 mg capsule (Altace) 2.5 mg PO PM #90 cap 12/30/20 01/18/21 Rx insulin regular human 100 unit/mL See Rx Instructions SUBCUT TID #30 01/01/21 01/18/21 Rx (3 mL) subcutaneous pen (Novolin R ml Flexpen) fluticasone furoate 200 1 inh INHALATION QAM #60 ea 01/12/21 01/18/21 Rx mcg-vilanterol 25 mcg/dose inhalation powder (Breo Ellipta) metformin 500 mg tablet,extended 1,000 mg PO BID #180 tab 01/12/21 01/18/21 Rx release 24 hr levalbuterol HCl 1.25 mg/3 mL 1.25 mg INH TID PRN #72 ml 01/14/21 01/18/21 Rx solution for nebulization (Xopenex) levalbuterol tartrate 45 1 - 2 puff INH Q4H PRN #15 gm 01/14/21 01/18/21 Rx mcg/actuation aerosol inhaler (Xopenex HFA) metoclopramide HCl 10 mg tablet 10 mg PO QID #120 tab 01/14/21 01/18/21 Rx (Reglan) Allergies Allergy/AdvReac Type Severity Reaction Status Date / Time Sulfa (Sulfonamide Allergy Unknown RASH Verified 01/18/21 20:03 Antibiotics) fluticasone AdvReac Intermediate Tachycardia, Verified 01/18/21 20:03 [From Advair Diskus] palpitations salmeterol AdvReac Intermediate Tachycardia, Verified 01/18/21 20:03 [From Advair Diskus] palpitations Past Med/Surg History Medical History Anxiety Arthritis, lumbar spine Asthma CAD (coronary artery disease) Abnormal Dobutamine stress echo led to cardiac cath on 05/04/20 and PCI of Mid LCx with 2 SUN's Carpal tunnel syndrome of right wrist hx Charcot's joint of foot left Chronic venous insufficiency wears support hose Depression Diabetes mellitus, type 2 Endometriosis Fibromyalgia Gastroparesis GERD (gastroesophageal reflux disease) History of MRSA infection History of pneumococcal pneumonia Hyperlipidemia Hypertension Lumbar disc disease Osteoarthritis PCOS (polycystic ovarian syndrome) Peripheral neuropathy upper and lower extremities Sciatic pain right sided pain currently Seasonal allergies Trigger thumb of right hand hx Type 2 diabetes mellitus with diabetic neuropathy Surgical History H/O: hysterectomy History of carpal tunnel release History of esophagogastroduodenoscopy (EGD) History of heart artery stent (05/04/20) S/P repair of ventral hernia S/P tonsillectomy and adenoidectomy S/P total hysterectomy and bilateral salpingo-oophorectomy S/P trigger finger release Family History Father Diabetes Coronary heart disease Hx of CABG Mother Breast cancer S/P CABG (coronary artery bypass graft) Sister Breast cancer Denies family history of Ovarian cancer Prostate cancer Myocardial infarction Colorectal cancer Social History Smoking Status: Unknown if ever smoked Tobacco Type: Cigarettes Age Started Using Tobacco: 21; Age Quit Using Tobacco: 25; packs per day: 1; Years Smoked: 4; Second Hand Exposure: No; Hx Alcohol Use: Yes Alcohol type: wine Alcohol Intake Frequency: Monthly or Less Hx Substance Use: No Preferred Language: Marshallese Communication Ability: Effective Visual Impairment: No Limitations Hearing Ability: Normal 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: No Beliefs That Will Affect Care: None marital status: Current Living Situation: Spouse Current Living Situation Comment: , who is a quadraplegic current occupational status: employed Feels Safe at Home: Yes Childhood Exposure to Second-Hand Smoke: Yes caffeine: Yes during the past year weight has: remained stable Dental Care, Regularly: Yes Physical Activity Frequency: 1-2 Times per Week Physical Activity Frequency Comment: walking,gym Seatbelt Use: always Sunscreen Use: No Assistive Devices: Cane and Glasses Review of Systems A total of 10 systems reviewed and were otherwise negative Physical Exam Vital Signs Vital Signs - 24 hr 01/18/21 15:47 01/18/21 17:13 Temperature 37.7 C H Temperature Source Oral Pulse Rate 100 H Respiratory Rate 20 Respiratory Effort / Characteristics Non-Labored Respiratory Depth Normal Respiratory Pattern Regular Blood Pressure 114/52 L Blood Pressure Mean 72 Pulse Oximetry 93 85 L Oxygen Delivery Method Nasal Cannula Room Air Oxygen Flow Rate 2 Sepsis Recent Fever Within 48 Hours Yes Sepsis New/Unexplained Change in Mental Status No Sepsis Action Taken by Nursing No Action Required Pulse Oximetry Post Tiitration 94 General: The patient is resting in bed, appears fatigued and unwell but no apparent acute distress HEENT: Normocephalic, atraumatic, PERRL, EOMI, mucous membranes moist, oropharynx clear Neck: Trachea midline, no meningismus, no mid-line cervical tenderness Resp: Continuous dry cough, moderate inspiratory effort on 2L via NC, lung sounds clear bilaterally CV: Regular rate and rhythm, peripheral pulses palpated Back: No midline tenderness to the thoracic spine, no midline tenderness to the lumbar spine, no obvious step-offs or deformities Abd: Obese, soft, non-tender to palpation without rebound, guarding or rigidity, no peritoneal signs MSK: No obvious long bone deformities. Moving all extremities with strength 5/5 throughout, sensation and peripheral pulses intact Neuro: Awake, alert and oriented x 3, interacting and answering questions appropriately Course Administered Medications Discontinued Medications Acetaminophen (Acetaminophen 500 Mg Tab) 1,000 mg PO NOW STA Stop: 01/18/21 16:55 Last Admin: 01/18/21 18:36 Dose: 1,000 mg Documented by: [id number] Dexamethasone (Dexamethasone Sod Inj 4 Mg/Ml Vial) Confirm Administered Dose 8 mg .ROUTE .STK-MED ONE Stop: 01/18/21 18:33 Last Admin: 01/18/21 18:37 Dose: 6 mg Documented by: [id number] Dexamethasone 6 mg/ Syringe 1.5 mls @ 1 mls/min IV ONE ONE Stop: 01/18/21 18:02 Last Admin: 01/18/21 18:39 Dose: 1 mls/min Documented by: [id number] Remdesivir 200 mg/ Sodium (Chloride) 250 mls @ 125 mls/hr IV ONE STA; Protocol Stop: 01/18/21 22:39 Last Admin: 01/18/21 23:35 Dose: 125 mls/hr Documented by: [id number] Medical Decision Making Differential Diagnosis Etiologies such as viral syndrome, otitis, pharyngitis, COVID-19, pneumonia, influenza, meningitis, urinary tract infection, septic arthritis, soft tissue infectious process, intra-abdominal process, sepsis, bacteremia, as well as others were considered Laboratory Data Result diagrams: 01/18/21 18:15 01/18/21 18:15 Lab Results 01/18/21 01/18/21 01/18/21 Range/Units 18:03 18:15 18:15 WBC 12.68 H (4.8-10.8) K/uL RBC 4.77 (4.2-5.4) M/uL Hgb 12.8 (12.0-16.0) g/dL Hct 39.3 (37-47) % MCV 82.4 (80-100) fL MCH 26.8 (25-34) pg MCHC 32.6 (32-36) g/dL RDW Std Deviation 43.5 (36.4-46.3) fL RDW Coeff of Michael 14.4 (11.5-14.5) % Plt Count 176 (130-400) K/uL MPV 10.9 H (7.4-10.4) fL Immature Gran % (Auto) 0.3 % Neut % (Auto) 85.9 % Lymph % (Auto) 8.2 % Appling % (Auto) 5.6 % Eos % (Auto) 0.0 % Baso % (Auto) 0.0 % Neut # (Auto) 10.89 H (1.4-6.5) K/uL Lymph # (Auto) 1.04 L (1.2-3.4) K/uL Appling # (Auto) 0.71 H (0.11-0.59) K/uL Eos # (Auto) 0.00 (0-0.5) K/uL Baso # (Auto) 0.00 (0-0.2) K/uL Immature Gran # (Auto) 0.04 H (0.00-0.02) K/uL Polychromasia 1+ VBG pH (7.36-7.41) VBG pCO2 (38-50) mmHg VBG pO2 mmHg VBG HCO3 mmol/L VBG O2 Saturation % VBG Base Excess mEq/L Barometric Pressure mm/Hg Sodium 134 L (136-145) mmol/L Potassium 3.9 (3.5-5.1) mmol/L Chloride 102 (98-107) mmol/L Carbon Dioxide 23 (21-32) mmol/L Anion Gap 8.0 (3-11) BUN 12 (7-18) mg/dl Creatinine 1.13 (0.6-1.2) mg/dl Est Cr Clr Drug Dosing 69.0 ml/min Est GFR ( Amer) 62.0 ml/min Est GFR (Non-Af Amer) 53.5 ml/min BUN/Creatinine Ratio 10.3 (10-20) Glucose 241 H (70-99) mg/dl Lactate (0.4-2.0) mmol/L Calcium 8.8 (8.5-10.1) mg/dl Total Bilirubin 0.4 (0.2-1) mg/dl AST 36 (15-37) U/L ALT 27 (12-78) U/L Alkaline Phosphatase 73 (45-117) U/L Troponin I < 0.015 (0-0.045) ng/ml Total Protein 7.7 (6.4-8.2) gm/dl Albumin 2.7 L (3.4-5.0) gm/dl Globulin 5.0 H (2.5-4.0) gm/dl Albumin/Globulin Ratio 0.5 L (0.9-2) Urine Color Dark Yellow Urine Appearance Cloudy A (Clear) Urine pH 5.5 (4.5-7.5) Ur Specific Sartell 1.019 (1.000-1.030) Urine Protein 2+ H (Negative) Urine Glucose (UA) Negative (Negative) Urine Ketones Trace H (Negative) Urine Blood Trace H (Negative) Urine Nitrite Negative (Negative) Urine Bilirubin Negative (Negative) Urine Urobilinogen Negative (Negative) Ur Leukocyte Esterase Negative (Negative) Urine WBC (Auto) 1-5 (0-5) /hpf Urine RBC (Auto) 0-4 (0-4) /hpf U Hyaline Cast (Auto) 1-5 (0-5) /lpf U Epithel Cells (Auto) >30 H (0-5) /lpf Urine Bacteria (Auto) 1+ H (Negative) Granular Casts 1-5 H (0) /lpf 01/18/21 01/18/21 Range/Units 18:15 18:15 WBC (4.8-10.8) K/uL RBC (4.2-5.4) M/uL Hgb (12.0-16.0) g/dL Hct (37-47) % MCV (80-100) fL MCH (25-34) pg MCHC (32-36) g/dL RDW Std Deviation (36.4-46.3) fL RDW Coeff of Michael (11.5-14.5) % Plt Count (130-400) K/uL MPV (7.4-10.4) fL Immature Gran % (Auto) % Neut % (Auto) % Lymph % (Auto) % Appling % (Auto) % Eos % (Auto) % Baso % (Auto) % Neut # (Auto) (1.4-6.5) K/uL Lymph # (Auto) (1.2-3.4) K/uL Appling # (Auto) (0.11-0.59) K/uL Eos # (Auto) (0-0.5) K/uL Baso # (Auto) (0-0.2) K/uL Immature Gran # (Auto) (0.00-0.02) K/uL Polychromasia VBG pH 7.40 (7.36-7.41) VBG pCO2 43 (38-50) mmHg VBG pO2 24 mmHg VBG HCO3 26 mmol/L VBG O2 Saturation < 60.0 % VBG Base Excess 1.2 mEq/L Barometric Pressure 728.4 mm/Hg Sodium (136-145) mmol/L Potassium (3.5-5.1) mmol/L Chloride (98-107) mmol/L Carbon Dioxide (21-32) mmol/L Anion Gap (3-11) BUN (7-18) mg/dl Creatinine (0.6-1.2) mg/dl Est Cr Clr Drug Dosing ml/min Est GFR ( Amer) ml/min Est GFR (Non-Af Amer) ml/min BUN/Creatinine Ratio (10-20) Glucose (70-99) mg/dl Lactate 1.6 (0.4-2.0) mmol/L Calcium (8.5-10.1) mg/dl Total Bilirubin (0.2-1) mg/dl AST (15-37) U/L ALT (12-78) U/L Alkaline Phosphatase (45-117) U/L Troponin I (0-0.045) ng/ml Total Protein (6.4-8.2) gm/dl Albumin (3.4-5.0) gm/dl Globulin (2.5-4.0) gm/dl Albumin/Globulin Ratio (0.9-2) Urine Color Urine Appearance (Clear) Urine pH (4.5-7.5) Ur Specific Sart[place] (1.000-1.030) Urine Protein (Negative) Urine Glucose (UA) (Negative) Urine Ketones (Negative) Urine Blood (Negative) Urine Nitrite (Negative) Urine Bilirubin (Negative) Urine Urobilinogen (Negative) Ur Leukocyte Esterase (Negative) Urine WBC (Auto) (0-5) /hpf Urine RBC (Auto) (0-4) /hpf U Hyaline Cast (Auto) (0-5) /lpf U Epithel Cells (Auto) (0-5) /lpf Urine Bacteria (Auto) (Negative) Granular Casts (0) /lpf Imaging Data Radiologist's Impression: Chest X-Ray 01/18/21 16:54 XR chest 1V portable HISTORY: +Covid, cough and SOB COMPARISON: Chest 06/28/2019. FINDINGS: There are low lung volumes. No pneumothorax. No pleural effusions. Cardiac silhouette is borderline enlarged. Patchy bilateral airspace opacities and interstitial thickening. IMPRESSION: Patchy bilateral airspace opacities and interstitial thickening. This favors a viral pneumonia. ACT 112: Negative or not required by law. Electronically signed by: Rick Block M.D. 01/18/2021 6:31 PM MDM Narrative Physical exam and history were performed. Nursing notes, EMR, and medication list were personally reviewed. Patient presents to the Emergency Department for evaluation of worsening cough and shortness of breath since being diagnosed with Covid19 one week prior to arrival. The patient states that she first began with flu-like symptoms on 01/12/2021 including fever/chills, cough, generalized body aches, and loss of continence of her urine. Since then she has been resting at home and has attempted to take Tylenol without relief of her symptoms. She has also developed worsening fatigue and states that she feels very shaky, making it hard for her to walk. Today, she states that her cough got so bad that she was having difficulty catching her breath. Patient called EMS to bring her to the emergency department for further evaluation. En route and while in the Emergency Department, she was noted to be hypoxic with ox sats 85% on room air which did improve to the mid 90s with placement of 2 L O2 via NC. On exam, the patient does appear to be fatigued and is constantly coughing, which does get worse with attempts of talking to me. Despite her respiratory symptoms, her lung sounds are clear upon auscultation. She does not have any other significant findings on exam. Using shared medical decision making between myself, my attending, Dr. La, and the patient at bedside, she agreed to have a chest x-ray, EKG, and labs including CBC, CMP, lactate, troponin, and VBG for further evaluation. She also agreed to be retested for Covid19. Chest x-ray was obtained and reviewed by myself and radiologist as above. She did appear to have patchy bilateral airspace opacities and interstitial thickening which was consistent with her diagnosis of Covid19 which was also positive on her test today. IV access was established, labs were drawn and reviewed by myself as above. She does have leukocytosis with a white blood cell count of 12.68. Her VBG was WNL. She was mildly hyponatremic with a sodium of 134 and hyperglycemic at 241 (hx DM2 on insulin). Her lactate was not elevated at 1.6. Additionally, her a lbumin was found to be low at 2.7 and her globulin high at 5.0 both of which may likely be due to infectious process. I discussed the results of the above findings with Dr. La and the patient at bedside. Due to findings of hypoxia in the setting of the patient's Covid-19 diagosis, I recommend that the patient be admitted with the hospitalist service for ongoing management. Dexamethasone 6 mg IV and a CTA angiogram PE study were ordered in the meantime. The [facility] physician group hospitalist service was contacted and agreed to evaluate the patient. She and her verbalized understanding and agreement with the treatment plan as above. The chart was completed utilizing [employer] Speech Voice Recognition Software. Grammatical errors, random word insertions, pronoun errors, and incomplete sentences are an occasional consequence of this system due to software limitations, ambient noise, and hardware issues. Any formal questions or concerns about the content, text, or information contained within the body of this dictation should be directly addressed to the provider for clarification. Impression & Plan COVID-19, Hypoxia, Flu-like symptoms Discharge Plan Visit Data Chief Complaint: Shortness of Breath/Dyspnea ED Provider: Royer La ED Midlevel Provider: Megan Hogan Discharge Problem: COVID-19, Hypoxia, Flu-like symptoms Discharge Instructions Interventions: ED Discharge Assessment Last Done: 01/19/21 00:32
[2021-01-19] MEDS ORDERED: PREMARIN VAG CRM 14 APPLN/30 GM TUBE PV SCH (01:12)
[2021-01-19] MEDS ORDERED: ACETAMINOPHEN 325 MG TAB PO PRN (01:12)
[2021-01-19] MEDS ORDERED: ONDANSETRON INJ 2 MG/ML 2 ML VIAL IV PRN (01:12)
[2021-01-19] MEDS ORDERED: NITROGLYCERIN SL 0.4 MG/TAB TAB SL PRN (01:12)
[2021-01-19] MEDS ORDERED: NON-FORMULARY MEDICATION (Coq10 (Ubiquinol) 200 mg Capsule) PO SCH (01:12)
[2021-01-19] MEDS ORDERED: MoRPHine SULFATE 2 MG/ML CARP IV PRN (01:12)
[2021-01-19] MEDS ORDERED: tiZANidine HCL 4 MG TABLET PO PRN (01:12)
[2021-01-19] MEDS ORDERED: POLYETHYLENE (MIRALAX) 17 GM PACK PO PRN (01:12)
[2021-01-19] MEDS ORDERED: CLOTRIMAZOLE/BETAMETHASONE CR 15 GM TUBE EXT PRN (01:12)
[2021-01-19] MEDS ORDERED: SODIUM CHLORIDE 0.9% 10ML FLUSH IV SCH (01:12)
[2021-01-19] MEDS ORDERED: CETIRIZINE HCL 10 MG TABLET PO PRN (01:12)
[2021-01-19] MEDS ORDERED: PHARMACY GLYCEMIC MGMT CONSULT PRN (01:12)
[2021-01-19] MEDS ORDERED: GLUCAGON FOR INJ 1 MG VIAL SQ PRN (01:17)
[2021-01-19] MEDS ORDERED: CARBOHYDRATES FOR HYPOGLYCEMIA PO PRN (01:17)
[2021-01-19] MEDS ORDERED: GLUCOSE 10 TABS/TUBE PO PRN (01:17)
[2021-01-19] MEDS ORDERED: DEXTROSE 50% 50 ML SYRINGE IV PRN (01:17)
[2021-01-19] MEDS ORDERED: GLUCOSE 40% GEL 15 GM TUBE PO PRN (01:17)
[2021-01-19] MEDS: SODIUM CHLORIDE 0.9% 10ML FLUSH IV SCH (01:44)
[2021-01-19] MEDS ORDERED: ENALAPRIL MALEATE 10 MG TAB PO SCH (01:45)
[2021-01-19] MEDS ORDERED: INSULIN GLARGINE SOLOSTAR 100 UNITS/ML 3 ML PEN SC ONE ×2 (01:45→06:00)
[2021-01-19] MEDS ORDERED: INSULIN HUMAN REGULAR PER UNIT 10 UNITS in SYRINGE 9.9 ML IV ONE (01:45)
[2021-01-19] MEDS ORDERED: INSULIN ASPART 100 UNITS/ML 3 ML PEN SC SCH (01:45)
[2021-01-19] MEDS: PANTOprazole 40 MG TAB PO SCH ×3 (01:50→20:15)
[2021-01-19] MEDS: ATORVASTATIN 40 MG TAB PO SCH ×2 (01:51→20:15)
[2021-01-19] MEDS: MONTELUKAST SODIUM 10 MG TABLET PO SCH ×2 (01:51→20:15)
[2021-01-19] MEDS: GABAPENTIN 400 MG CAP PO SCH ×4 (01:51→20:15)
[2021-01-19] MEDS: INSULIN HUMAN REGULAR SC SCH ×6 (02:53→20:57)
[2021-01-19] MEDS ORDERED: INSULIN HUMAN REGULAR SC ONE (05:45)
[2021-01-19] MEDS ORDERED: SEVERE STRESS LEVEL ONE (06:07)
[2021-01-19] MEDS ORDERED: STAT IV Infusion **Titration per Protocol STA (06:07)
[2021-01-19] MEDS ORDERED: INSULIN PROTOCOL GOAL RANGE ONE (06:07)
[2021-01-19] MEDS ORDERED: INSULIN REGULAR 250 UNITS in SODIUM CHLORIDE 0.9% 247.5 ML IV SCH ×2 (06:15→07:30)
[2021-01-19] MEDS ORDERED: INSULIN HUMAN REGULAR IV BOLUS 4 UNITS in SYRINGE 0 ML IV ONE (06:15)
[2021-01-19] MEDS: dexAMETHasone 6 MG in SYRINGE 0 ML IV SCH (08:42)
[2021-01-19] MEDS: FAMOTIDINE 20 MG TAB PO SCH ×2 (08:42→20:15)
[2021-01-19] MEDS: FLUTICASONE PROPIONATE NA SPR 16 GM BTL SCH (08:43)
[2021-01-19] MEDS: CLOPIDOGREL BISULFATE 75 MG TAB PO SCH (08:43)
[2021-01-19] MEDS: CHOLECALCIFEROL 1,000 UNITS 25 MCG TAB PO SCH (08:44)
[2021-01-19] MEDS: ASPIRIN 81 MG ECTAB PO SCH (08:44)
[2021-01-19] MEDS: DULoxetine HCL 60 MG CAP PO SCH (08:44)
[2021-01-19] MEDS: FLUTICASONE/VILANTEROL 200/25MCG 14 PUFFS/INHALER INH SCH (08:45)
[2021-01-19] MEDS: ENOXAPARIN INJ 40 MG/0.4 ML SYR SQ SCH (08:45)
[2021-01-19 08:49] LABS: Estimated Average Glucose 194 mg/dl; Hemoglobin A1C 8.4 % (4.5-5.6)
[2021-01-19] MEDS ORDERED: TORSEMIDE 10 MG TAB PO SCH (09:00)
[2021-01-19] MEDS ORDERED: INSULIN HUMAN NPH SC ONE (09:45)
--- NOTE | 2021-01-19 09:46 | Pharmacy Report ---
Pharmacy Glycemic Short Note 2 - Date of Service January 19, 2021 - Glycemic Short BSG Results (Last 24 hours): 01/18/21 01/19/21 01/19/21 18:15 01:08 01:10 Glucose 241 H POC Glucose 414 H* 403 H* 01/19/21 01/19/21 01/19/21 03:05 03:06 03:06 Glucose POC Glucose 383 H* 346 H* 353 H* 01/19/21 01/19/21 01/19/21 05:44 05:47 06:34 Glucose POC Glucose 359 H* 350 H* 352 H* 01/19/21 01/19/21 01/19/21 06:34 06:35 08:37 Glucose POC Glucose 385 H* 414 H* 297 H OUTPATIENT ANTIDIABETIC REGIMEN: * Lantus 63 units SQ daily in AM * Regular insulin 12-16 units SQ BIDM * A1c = 8.4% on 01/19/21 ASSESSMENT: * 60yo T2DM female with above goal range A1c. Previous A1c was 7.6% 06/22/20; now up to 8.4% (may be elevated secondary to ongoing recent illness with COVID- 19?) * Pt with SEVERE hyperglycemia on admission. Hyperglycemia a porduct of illness and high dose steroids for COVID. Pt initially refusing all additional insulin orders but agreed early this morning to start an insulin infusion and take her outpatient Lantus dosing * Pt will continue on Dexamethasone 6mg IV daily --> will need 0.4 units/kg NPH to cover this high dose steroid in addition to her baseline SQ basal bolus insulin needed. * Continue IV insulin infusion per protocol (currently running at 4 units/hr). Since multiple long acting SQ insulin doses are being given (NPH & Lantus) can DC IV insulin infusion when held per calculator AND the rate has tapered to 1 unit/hr or below. PLAN FOR INPATIENT GLYCEMIC CONTROL: * Basal insulin * Lantus 63 units SQ daily AM * Steroid induced hyperglycemia * NPH 40 units (0.4 units/kg) sq daily in AM given with dexamethasone (hold NPH if dex held or dc) * IV insulin infusion per severe stress protocol * Goal range 140-180 mg/dl * can stop insulin infusion when both of the following criteria has been met: * BSG below 180mg/dl x 2 checks 1 hr apart AND Rate 1 unit/hr or BELOW * Bolus insulin (to start when insulin infusion dc) * NovoLog per scale ACHS or Q6hrs while NPO * Goal Range: Low 110 mg/dL - High 140 mg/dL * Correction Factor: 15 mg/dL/unit * Nutritional / Prandial insulin per carb ratio of 1 unit per 4 grams CHO consumed PLAN FOR DISCHARGE: * TBD
[2021-01-19] MEDS ORDERED: LORazepam 0.5 MG/1 ML VIAL IV PRN (10:34)
--- NOTE | 2021-01-19 16:04 | Hospitalist Progress Note ---
Date of Service January 19, 2021 Assessment & Plan (1) Pneumonia due to COVID-19 virus: Plan: Initially diagnosed 01/11/21 per patient. - Initiated remdesivir (End date: 01/22) - Continue dexamethasone 6 mg IV daily (End date: 01/27) - Not a candidate for tocilizumab or baricitinib at present (not on high flow or greater O2) - Supplement O2 as needed; presently on 6L NC - Encouraged proning, though patient reluctant. Explained benefits. (2) Hypoxia: Plan: Due to Covid. - As above (3) Saddle anesthesia: Plan: Patient reported to me on 01/19 that she had had saddle anesthesia (numbness with wiping), bladder incontinence, and subjective changes to strength and sensation of lower extremities. On exam, strength appears 5/5 in LEs for me. - Discussed with Dr. Hay who reported he would review MRI - Stat MRI of lumbar spine ordered (4) Uncontrolled type 2 diabetes mellitus with hyperglycemia: Plan: A1c was 8.4% this admission, increasing from prior checks. - Glycemic pharmacist consulted for high insulin needs, illness, and steroids. -> Presently on insulin gtt (5) CAD (coronary artery disease): Plan: CAD s/p LCx/OM PCI with 2 stents in 04/2020. No angina today. - Continue ASA/Plavix, statin - Hold ACEi for hypotension - Not on beta-kali at baseline for bradycardia (6) Hypertension: Plan: Ususall controlled with ACEi. Presently more with hypotension (BP generally has been in normal range in outpatient visits: 110/55 - 130/70.) - Holding ACEi - Support BP with small fluid boluses as needed (7) Peripheral neuropathy: Plan: Unclear etiology. I do not see reference in PCP's notes. - Continue home gabapentin 400 mg PO TID (8) Chronic venous insufficiency: Plan: Well-controlled with stockings/hose. - Hold torsemide for now; monitor (9) GERD (gastroesophageal reflux disease): Plan: - Continue home PPI and H2 blockers (10) Fibromyalgia: Plan: - Continue home duloxetine (11) Anxiety: Plan: Very tearful today. - Continue home duloxetine - Ativan PRN (12) DVT prophylaxis: Plan: Lovenox 40 mg SQ daily Admission and Anticipated Discharge Date Admission Date: January 18, 2021 Subjective Most concerning issue is that she reports some saddle anesthesia and bladder incontinence over last 5-6 days. Reports some subjective numbness and loss of strength in the legs, though she does report this is complicated by her baseline neuropathy. Less shortness of breath today. Reports no fevers/chills, chest pain, abdominal pain, nausea, or vomiting. Physical Exam Constitutional: WD/WN, vitals as above Eyes: EOM intact bilaterally; no conjunctival abnormality ENMT: external ear and nose normal, oropharynx normal Neck: trachea midline, no thyromegaly normal visual inspection Respiratory: + labored breathing, + cough and + tachypneic; no respiratory distress Cardiovascular: RRR, no murmur, no edema Gastrointestinal (Abdomen): Inspection/Auscultation: abdomen normal to insp ection; abdomen not distended Musculoskeletal: no cyanosis or clubbing, extremities motor strength 5/5 (Legs with good strength in all muscle groups.) Skin: no rashes, warm and dry Neurologic: moves all extremities and awake Motor/Sensory: no sensory deficit (Light touch seems intact/at baseline to my exam.) Psychiatric: Orientation: alert, oriented to person and cooperative Results & Data Results & Data ([facility]) Vital Signs (Past 12 Hours) Vital Signs Temp Pulse Pulse Resp BP Pulse Ox 01/19/21 14:57 36.9 C 51 L 23 86/51 L 97 01/19/21 12:04 36.4 C L 55 L 20 90/57 L 97 01/19/21 08:36 67 98/67 L 01/19/21 08:00 56 L 01/19/21 07:34 37.0 C 49 L 19 84/45 L 95 01/19/21 04:18 48 L PG Care Time/CCT Total # of Minutes Spent Total Time Spent with Patient: Total time spent is greater than 50% in coordination of care (as documented) at patient's floor/unit and/or counseling patient: Coding Level of Care Code 68217 Subseq Hosp Care Lvl 3 Diagnoses Hypoxia R09.02 Pneumonia due to COVID-19 virus U07.1; J12.82 Uncontrolled type 2 diabetes mellitus with hyperglycemia E11.65 CAD (coronary artery disease) I25.10 Coronary Disease-Associated Artery/Lesion type: [place] artery [place] vs. transplanted heart: [place] heart Associated angina: without angina Hypertension I10 Hypertension type: essential hypertension Peripheral neuropathy G63 Peripheral neuropathy type: polyneuropathy associated with underlying disease Chronic venous insufficiency I87.2 GERD (gastroesophageal reflux disease) K21.9 Fibromyalgia M79.7 Anxiety F41.9 Saddle anesthesia R20.0 DVT prophylaxis Z29.9 (1) CAD (coronary artery disease) Coronary Disease-Associated Artery/Lesion type: [place] artery [place] vs. [place] heart: [place] heart Associated angina: without angina Qualified Code(s): I25.10 - Atherosclerotic heart disease of [place] coronary artery without angina pectoris (2) Hypertension Hypertension type: essential hypertension Qualified Code(s): I10 - Essential (primary) hypertension (3) Peripheral neuropathy Peripheral neuropathy type: polyneuropathy associated with underlying disease Qualified Code(s): G63 - Polyneuropathy in diseases classified elsewhere
[2021-01-19] MEDS ORDERED: OPTIRAY 320 125ml IV ONE (18:45)
--- NOTE | 2021-01-19 19:12 | CT Scan Report ---
CT angio chest PE protocol CT DOSE: 468.71 mGycm HISTORY: 60 years-old Female with PE. Acute cough with shortness of breath TECHNIQUE: Multiple CTA images of the chest were obtained after the intravenous administration of 104 ml Optiray. Coronal and sagittal MIPS were obtained from the axial data set and were submitted for review. All measurements were obtained according to NASCET criteria. A dose lowering technique was u tilized adhering to the principles of ALARA. COMPARISON: Chest radiograph 01/18/2021, CTA chest 10/09/2012 FINDINGS: CTA: Moderate cardiomegaly. No pericardial effusion. Moderate coronary artery calcifications. No thoracic aortic aneurysm or dissection. Patency of the imaged great vessels. The pulmonary artery is opacified to level the segmental branches and demonstrates no filling defects to suggest thromboembolic diseas e. CT CHEST: Multinodular thyroid. Mildly enlarged subcarinal lymph nodes measure up to 10 mm which are likely ciaran ctive. No pneumothorax or pleural effusion. Patchy bilateral groundglass and consolidative opacities are noted within a multi segmental multilobar distribution. No suspicious pulmonary nodules or masses are identified. Mild bronchial wall thickening at the level of the lung bases. Mild tracheobronchial secretions. No acute process of the imaged upper abdomen. Unremarkable soft tissues. No acute fracture. IMPRESSION: 1. Cardiomegaly without pulmonary emboli. 2. Bilateral patchy groundglass opacities are suggestive of viral pneumonia. ACT 112: Negative or not required by law. The above report was generated using voice recognition software. It may contain grammatical, syntax o r spelling errors. Electronically signed by: Scottie Hung M.D. 01/19/2021 7:11 PM
[2021-01-19] MEDS: REMDESIVIR 100 MG in SODIUM CHLORIDE 0.9% 230 ML IV SCH (20:15)
[2021-01-20] MEDS ORDERED: FLUMAZENIL 0.1 MG/1 ML 10 ML VIAL IV STA ×2 (00:10→02:11)
--- NOTE | 2021-01-20 00:39 | Communication Note ---
Date of Service: January 20, 2021 Called by bedside nursing staff in regards to patient's increased sedation and somnolence following return from MRI. Prior to MRI patient had received 0.5 mg of IV Ativan out of concern for claustrophobia, this subsequently caused increased amount of sedation throughout the MRI. According to staff with her throughout that time she was verbally responsive and communicating, but becoming increasingly somnolent as time passed. Oxygen saturations remained appropriate; however following return to patient room was very sedate and had associated hyp otension as well as continued persistent bradycardia. Given close relation to Ativan dosing will trial flumazenil. Discontinued benzos.
[2021-01-20] MEDS: SODIUM CHLORIDE 0.9% 10ML FLUSH IV SCH ×2 (02:19→21:40)
[2021-01-20] MEDS: DC IV INSULIN INFUSION 1 EA DEVI SCH ×4 (05:12→12:18)
--- NOTE | 2021-01-20 05:37 | Billing Data ---
Date of Service January 20, 2021 Coding Level of Care Code 89876 Initial Inpt Care Lvl 3
--- NOTE | 2021-01-20 06:14 | Electrocardiogram Report ---
Test Reason : Blood Pressure : / mmHG Vent. Rate : 087 BPM Atrial Rate : 087 BPM P-R Int : 128 ms QRS Dur : 092 ms QT Int : 356 ms P-R-T Axes : 027 -34 049 degrees QTc Int : 428 ms Sinus rhythm with Premature atrial complexes Left axis deviation Voltage criteria for left ventricular hypertrophy Abnormal ECG When compared with ECG of 28-SEP-2012 00:14, Premature atrial complexes are now Present Confirmed by Bryn Alfred ([id number]) on 01/20/2021 6:14:16 AM Referred By: REFERRED SELF Confirmed By:Bryn Alfred
[2021-01-20 07:58] LABS: Hematocrit (blood only) 34.9 % (37-47); Hemoglobin 11.4 g/dL (12.0-16.0); Mean Corpuscular Hemoglobin 26.3 pg (25-34); Mean Corpuscular Hgb Conc 32.7 g/dL (32-36); Mean Corpuscular Volume 80.6 fL (80-100); Mean Platelet Volume 10.8 fL (7.4-10.4); Platelet Count 199 K/uL (130-400); RDW Coefficient of Variation 14.6 % (11.5-14.5); RDW Standard Deviation 43.5 fL (36.4-46.3); Red Blood Count 4.33 M/uL (4.2-5.4); White Blood Count 11.35 K/uL (4.8-10.8)
--- NOTE | 2021-01-20 08:13 | Magnetic Resonance Report ---
MR lumbar spine wo con CLINICAL HISTORY: Spinal cord concern TECHNIQUE: Sagittal and axial T1, T2 and STIR images were obtained. COMPARISON STUDY: June 30, 2017 OBSERVATIONS: The vertebral bodies and posterior elements appear intact. There is no abnormal bony signal present t o suggest a marrow replacement process. No evidence of acute fracture or traumatic malalignment. Normal lumbar lordosis is preserved. Vertebral body heights are maintained. Multilevel intervertebral disc space narrowing with disc desiccation and osteophytes of worsening sin ce prior. L1-2: No disc protrusions or extrusions. No evidence of spinal canal or neural foraminal compromise. L2-3: Intervertebral disc space narrowing with disc desiccation and disc bulge are seen causing lara ening of thecal sac. Bilateral neuroforamina are patent. L3-4: Intervertebral disc space narrowing with disc desiccation and diffuse bulge of the disc is seen causing flattening of thecal sac, findings are worsening since prior. Associated hypertrophic change s of facet joints are seen causing minimal stenosis of the central canal. L4-5: Minimal narrowing of intervertebral disc space with diffuse bulge of the disc which is causing flattening of thecal sac, findings are worsened since prior. There is mild stenosis of bilateral neur oforamina are seen at this level. L5-S1: No disc protrusions or extrusions. No evidence of spinal canal stenosis. Moderate stenosis of the left neuroforamina. Right neuroforamina is patent. Findings are stable since prior. The conus medullaris and cauda equina appear normal. IMPRESSION: Mild degenerative changes of the spine, worsening since prior study in 2018 as detailed above. ACT 112: Negative or not required by law. The above report was generated using voice recognition software. It may contain grammatical, syntax o r spelling errors. Electronically signed by: Liz Taylor DO 01/20/2021 8:11 AM
[2021-01-20] MEDS: ASPIRIN 81 MG ECTAB PO SCH (08:19)
[2021-01-20] MEDS: CHOLECALCIFEROL 1,000 UNITS 25 MCG TAB PO SCH (08:19)
[2021-01-20] MEDS: DULoxetine HCL 60 MG CAP PO SCH (08:19)
[2021-01-20] MEDS: ENOXAPARIN INJ 40 MG/0.4 ML SYR SQ SCH (08:20)
[2021-01-20] MEDS: dexAMETHasone 6 MG in SYRINGE 0 ML IV SCH (08:20)
[2021-01-20] MEDS: CLOPIDOGREL BISULFATE 75 MG TAB PO SCH (08:20)
[2021-01-20] MEDS: GABAPENTIN 400 MG CAP PO SCH ×3 (08:21→20:24)
[2021-01-20] MEDS: FAMOTIDINE 20 MG TAB PO SCH ×2 (08:21→20:24)
[2021-01-20] MEDS: FLUTICASONE PROPIONATE NA SPR 16 GM BTL SCH (08:21)
[2021-01-20] MEDS: FLUTICASONE/VILANTEROL 200/25MCG 14 PUFFS/INHALER INH SCH (08:21)
[2021-01-20] MEDS: PANTOprazole 40 MG TAB PO SCH ×2 (08:22→20:24)
[2021-01-20 08:30] LABS: BUN Creatinine Ratio 33.5 (10-20); Calcium 8.6 mg/dl (8.5-10.1); Creatinine Clr Calc Pharmacy 86.6 ml/min; Est GFR (African American) 81.7 ml/min; Est GFR (Non-African American) 70.5 ml/min
[2021-01-20] MEDS: INSULIN HUMAN REGULAR SC SCH ×2 (08:33→13:24)
[2021-01-20] MEDS: INSULIN GLARGINE SOLOSTAR 100 UNITS/ML 3 ML PEN SC SCH (08:37)
[2021-01-20] MEDS ORDERED: INSULIN HUMAN NPH SC SCH ×2 (09:00)
[2021-01-20 10:24] LABS: Potassium 3.7 mmol/L (3.5-5.1)
[2021-01-20 10:35] LABS: Magnesium 2.2 mg/dl (1.8-2.4)
--- NOTE | 2021-01-20 14:44 | Pharmacy Report ---
Pharmacy Glycemic Short Note 2 - Date of Service January 20, 2021 - Glycemic Short BSG Results (Last 24 hours): 01/19/21 01/19/21 01/19/21 14:54 15:52 16:50 Glucose POC Glucose 238 H 210 H 178 H 01/19/21 01/19/21 01/19/21 17:45 19:01 20:08 Glucose POC Glucose 189 H 188 H 182 H 01/19/21 01/19/21 01/20/21 21:17 22:26 00:04 Glucose POC Glucose 176 H 183 H 146 H 01/20/21 01/20/21 01/20/21 01:02 01:58 03:15 Glucose POC Glucose 122 H 107 H 124 H 01/20/21 01/20/21 01/20/21 04:04 05:12 07:21 Glucose 175 H POC Glucose 136 H 182 H 01/20/21 01/20/21 07:44 11:16 Glucose POC Glucose 176 H 287 H OUTPATIENT ANTIDIABETIC REGIMEN: * Lantus 63 units SQ daily in AM * Regular insulin 12-16 units SQ BIDM * A1c = 8.4% on 01/19/21 ASSESSMENT: 01/20 * Patient was transitioned off of insulin infusion this morning, tightened regular insulin parameters * Continued Lantus home dose with addition of 0.4 units/kg NPH to cover the dexamethasone 6 mg patient is receiving * Patient's BSG was elevated at lunch, however suspect that the regular insulin had not fully taken effect. Will switch to novolog to have a faster onset 01/19 * 60yo T2DM female with above goal range A1c. Previous A1c was 7.6% 06/22/20; now up to 8.4% (may be elevated secondary to ongoing recent illness with COVID- 19?) * Pt with SEVERE hyperglycemia on admission. Hyperglycemia a porduct of illness and high dose steroids for COVID. Pt initially refusing all additional insulin orders but agreed early this morning to start an insulin infusion and take her outpatient Lantus dosing * Pt will continue on Dexamethasone 6mg IV daily --> will need 0.4 units/kg NPH to cover this high dose steroid in addition to her baseline SQ basal bolus insulin needed. * Continue IV insulin infusion per protocol (currently running at 4 units/hr). Since multiple long acting SQ insulin doses are being given (NPH & Lantus) can DC IV insulin infusion when held per calculator AND the rate has tapered to 1 unit/hr or below. PLAN FOR INPATIENT GLYCEMIC CONTROL: * Basal insulin * Lantus 63 units SQ daily AM * Steroid induced hyperglycemia * NPH 43 units (0.4 units/kg) sq daily in AM given with dexamethasone (hold NPH if dex held or dc) * Bolus insulin (to start when insulin infusion dc) * NovoLog per scale ACHS or Q6hrs while NPO * Goal Range: Low 110 mg/dL - High 140 mg/dL * Correction Factor: 10 mg/dL/unit * Nutritional / Prandial insulin per carb ratio of 1 unit per 4 grams CHO consumed PLAN FOR DISCHARGE: * TBD
--- NOTE | 2021-01-20 15:16 | Hospitalist Progress Note ---
Date of Service January 20, 2021 Assessment & Plan (1) Pneumonia due to COVID-19 virus: Plan: Initially diagnosed 01/11/21 per patient. - Initiated remdesivir (End date: 01/22) - Continue dexamethasone 6 mg IV daily (End date: 01/27) - Not a candidate for tocilizumab or baricitinib at present (not on high flow or greater O2) - Supplement O2 as needed; presently on 5L NC - Encouraged proning, though patient reluctant. Explained benefits. -> Improving today. Lower O2 need. Feels less shortness of breath. (2) Hypoxia: Plan: Due to Covid. - As above (3) Hypertension: Plan: Ususall controlled with ACEi. Presently more with hypotension (BP generally has been in normal range in outpatient visits: 110/55 - 130/70.) - Holding ACEi -> Discussed with cardiology on 01/20. Feels that HR in the 40 - 50 range should not cause appreciable hypotension. Patient without symptoms. - Support BP with small fluid boluses as needed. Monitor HR. (4) Saddle anesthesia: Plan: Patient reported to me on 01/19 that she had had saddle anesthesia (numbness with wiping), bladder incontinence, and subjective changes to strength and sensation of lower extremities for the last 4-5 days. - Discussed with Dr. Hay who reviewed the lumbar MRI from 01/20 - In agreement with radiology read that there is no cord compression or acute issue. - Patient's bladder incontinence seems longer-standing. She has a bladder sling and has had prior incontinence, so this is tough to compare to baseline. Likewise, strength in LEs is 5/5 and has been stable. - Monitor and encourage changes in position and PT/OT. (5) Uncontrolled type 2 diabetes mellitus with hyperglycemia: Plan: A1c was 8.4% this admission, increasing from prior checks. - Glycemic pharmacist consulted for high insulin needs, illness, and steroids. -> Blood sugars 130 - 280 over last 24 hours. (6) CAD (coronary artery disease): Plan: CAD s/p LCx/OM PCI with 2 stents in 04/2020. No angina today. - Continue ASA/Plavix, statin - Hold ACEi for hypotension - Not on beta-kali at baseline for bradycardia (7) Peripheral neuropathy: Plan: Unclear etiology. I do not see reference in PCP's notes. - Continue home gabapentin 400 mg PO TID (8) Chronic venous insufficiency: Plan: Well-controlled with stockings/hose. - Hold torsemide for now; monitor (9) GERD (gastroesophageal reflux disease): Plan: - Continue home PPI and H2 blockers (10) Fibromyalgia: Plan: - Continue home duloxetine (11) Anxiety: Plan: Very tearful today. - Continue home duloxetine - Ativan PRN (12) DVT prophylaxis: Plan: Lovenox 40 mg SQ daily Admission and Anticipated Discharge Date Admission Date: January 18, 2021 Subjective Feeling some better today. Her shortness of breath is better. She is still coughing some. Reports no fevers/chills, chest pain, abdominal pain, nausea, or vomiting. Physical Exam Constitutional: WD/WN, vitals as above Eyes: EOM intact bilaterally; no conjunctival abnormality ENMT: external ear and nose normal, oropharynx normal Neck: trachea midline, no thyromegaly normal visual inspection Respiratory: + labored breathing, + cough and + tachypneic; no respiratory distress Cardiovascular: Rate/Rhythm: regular rhythm and + bradycardic Heart Sounds: normal S1 and normal S2 Gastrointestinal (Abdomen): Inspection/Auscultation: abdomen normal to inspection; abdomen not distended Musculoskeletal: no cyanosis or clubbing, extremities motor strength 5/5 (Legs with good strength in all muscle groups.) Skin: no rashes, warm and dry Neurologic: moves all extremities and awake Motor/Sensory: no sensory deficit (Light touch seems intact/at baseline to my exam.) Psychiatric: Orientation: alert, oriented to person and cooperative Results & Data Results & Data ([facility]) Vital Signs (Past 12 Hours) Vital Signs Temp Pulse Resp BP BP Pulse Ox 01/20/21 11:17 36.7 C 47 L 18 95/41 L 97 01/20/21 07:42 36.5 C 45 L 19 90/47 L 96 01/20/21 03:28 36.5 C 43 L 18 93/42 L 93 PG Care Time/CCT Total # of Minutes Spent Total Time Spent with Patient: Total time spent is greater than 50% in coordination of care (as documented) at patient's floor/unit and/or counseling patient: Coding Level of Care Code 52672 Subseq Hosp Care Lvl 3 Diagnoses Pneumonia due to COVID-19 virus U07.1; J12.82 Hypoxia R09.02 Saddle anesthesia R20.0 Uncontrolled type 2 diabetes mellitus with hyperglycemia E11.65 CAD (coronary artery disease) I25.10 Associated angina: without angina Coronary Disease-Associated Artery/Lesion type: [place] artery [place] vs. transplanted heart: [place] heart Hypertension I10 Hypertension type: essential hypertension Peripheral neuropathy G63 Peripheral neuropathy type: polyneuropathy associated with underlying disease Chronic venous insufficiency I87.2 GERD (gastroesophageal reflux disease) K21.9 Fibromyalgia M79.7 Anxiety F41.9 DVT prophylaxis Z29.9 (1) CAD (coronary artery disease) Associated angina: without angina Coronary Disease-Associated Artery/Lesion type: [place] artery [place] vs. transplanted heart: [place] heart Qualified Code(s): I25.10 - Atherosclerotic heart disease of [place] artery without angina pectoris (2) Peripheral neuropathy Peripheral neuropathy type: polyneuropathy associated with underlying disease Qualified Code(s): G63 - Polyneuropathy in diseases classified elsewhere (3) Hypertension Hypertension type: essential hypertension Qualified Code(s): I10 - Essential (primary) hypertension
[2021-01-20] MEDS ORDERED: FUROSEMIDE 40 MG/4 ML VIAL IV ONE (16:44)
[2021-01-20] MEDS: INSULIN ASPART 100 UNITS/ML 3 ML PEN SC SCH ×2 (18:18→20:28)
[2021-01-20] MEDS: REMDESIVIR 100 MG in SODIUM CHLORIDE 0.9% 230 ML IV SCH (20:23)
[2021-01-20] MEDS: ATORVASTATIN 40 MG TAB PO SCH (20:23)
[2021-01-20] MEDS: MONTELUKAST SODIUM 10 MG TABLET PO SCH (20:25)
[2021-01-21] MEDS: LEVALBUTEROL TARTRATE 15 GM HFA.AER.AD INH PRN ×2 (04:09→22:42)
[2021-01-21 08:26] LABS: Creatinine Clr Calc Pharmacy 75.5 ml/min; Est GFR (African American) 68.6 ml/min; Est GFR (Non-African American) 59.2 ml/min
[2021-01-21] MEDS: dexAMETHasone 6 MG in SYRINGE 0 ML IV SCH (08:33)
[2021-01-21] MEDS: ASPIRIN 81 MG ECTAB PO SCH (08:34)
[2021-01-21] MEDS: CHOLECALCIFEROL 1,000 UNITS 25 MCG TAB PO SCH (08:35)
[2021-01-21] MEDS: PANTOprazole 40 MG TAB PO SCH ×2 (08:35→20:31)
[2021-01-21] MEDS: FAMOTIDINE 20 MG TAB PO SCH ×2 (08:35→20:31)
[2021-01-21] MEDS: GABAPENTIN 400 MG CAP PO SCH ×3 (08:35→20:31)
[2021-01-21] MEDS: DULoxetine HCL 60 MG CAP PO SCH (08:36)
[2021-01-21] MEDS: CLOPIDOGREL BISULFATE 75 MG TAB PO SCH (08:36)
[2021-01-21] MEDS: ENOXAPARIN INJ 40 MG/0.4 ML SYR SQ SCH (08:37)
[2021-01-21] MEDS: FLUTICASONE PROPIONATE NA SPR 16 GM BTL SCH (08:37)
[2021-01-21] MEDS: FLUTICASONE/VILANTEROL 200/25MCG 14 PUFFS/INHALER INH SCH (08:38)
[2021-01-21] MEDS: INSULIN HUMAN NPH SC SCH (09:02)
[2021-01-21] MEDS: INSULIN ASPART 100 UNITS/ML 3 ML PEN SC SCH ×4 (09:04→20:42)
[2021-01-21] MEDS: INSULIN GLARGINE SOLOSTAR 100 UNITS/ML 3 ML PEN SC SCH (09:04)
[2021-01-21] MEDS: ALBUT/IPRATROP 3MG/0.5MG NEB 3 ML VIAL NEB PRN (11:17)
--- NOTE | 2021-01-21 14:07 | Hospitalist Progress Note ---
Date of Service January 21, 2021 Assessment & Plan (1) Pneumonia due to COVID-19 virus: Plan: Initially diagnosed 01/11/21 per patient. - Initiated remdesivir (End date: 01/22) - Continue dexamethasone 6 mg IV daily (End date: 01/27) - Not a candidate for tocilizumab or baricitinib at present (not on high flow or greater O2) - Supplement O2 as needed; presently on 1L NC -> Improving today. Lower O2 need. Feels less shortness of breath. Still drops with exertion. (2) Hypoxia: Plan: Due to Covid. - As above (3) Hypertension: Plan: Usually controlled with low-dose ACEi. Presently more with hypotension (BP generally has been in normal range in outpatient visits: 110/55 - 130/70.) - Holding ACEi -> Discussed with cardiology on 01/20. Feels that HR in the 40 - 50 range should not cause appreciable hypotension. Patient without symptoms. - Support BP with small fluid boluses as needed. Monitor HR. Stable today. (4) Saddle anesthesia: Plan: Patient reported to me on 01/19 that she had had saddle anesthesia (numbness with wiping), bladder incontinence, and subjective changes to strength and sensation of lower extremities for the last 4-5 days. - Discussed with Dr. Hay who reviewed the lumbar MRI from 01/20 - In agreement with radiology read that there is no cord compression or acute issue. - Patient's bladder incontinence seems longer-standing. She has a bladder sling and has had prior incontinence, so this is tough to compare to baseline. Bhavana velazquez, strength in LEs is 5/5 and has been stable. - Monitor and encourage changes in position and PT/OT. (5) Uncontrolled type 2 diabetes mellitus with hyperglycemia: Plan: A1c was 8.4% this admission, increasing from prior checks. - Glycemic pharmacist consulted for high insulin needs, illness, and steroids. -> Blood sugars 90 - 300 over last 24 hours. (6) CAD (coronary artery disease): Plan: CAD s/p LCx/OM PCI with 2 stents in 04/2020. No angina today. - Continue ASA/Plavix, statin - Hold ACEi for hypotension - Not on beta-kali at baseline for bradycardia (7) Peripheral neuropathy: Plan: Unclear etiology. I do not see reference in PCP's notes. - Continue home gabapentin 400 mg PO TID (8) Chronic venous insufficiency: Plan: Well-controlled with stockings/hose. - Hold torsemide for now; monitor (9) GERD (gastroesophageal reflux disease): Plan: - Continue home PPI and H2 blockers (10) Fibromyalgia: Plan: - Continue home duloxetine (11) Anxiety: Plan: Very tearful today. - Continue home duloxetine - Ativan PRN (12) DVT prophylaxis: Plan: Lovenox 40 mg SQ daily Admission and Anticipated Discharge Date Admission Date: January 18, 2021 Subjective Feeling some better today. Her shortness of breath is better. She is feeling very anxious about returning home and a lot of life stressors right now. Reports no fevers/chills, chest pain, abdominal pain, nausea, or vomiting. Physical Exam Constitutional: WD/WN, vitals as above Eyes: EOM intact bilaterally; no conjunctival abnormality ENMT: external ear and nose normal, oropharynx normal Neck: trachea midline, no thyromegaly normal visual inspection Respiratory: + labored breathing, + cough and + tachypneic; no respiratory distress Cardiovascular: RRR, no murmur, no edema Rate/Rhythm: regular rhythm and + bradycardic Heart Sounds: normal S1 and normal S2 Gastrointestinal (Abdomen): Inspection/Auscultation: abdomen normal to inspection; abdomen not distended Musculoskeletal: no cyanosis or clubbing, extremities motor strength 5/5 (Legs with good strength in all muscle groups.) Skin: no rashes, warm and dry Neurologic: moves all extremities and awake Motor/Sensory: no sensory deficit (Light touch seems intact/at baseline to my exam.) Psychiatric: Orientation: alert, oriented to person and cooperative Affect: + tearful affect Mood: + depressed mood Results & Data Results & Data ([facility]) Vital Signs (Past 12 Hours) Vital Signs Temp Pulse Resp BP Pulse Ox Pulse Ox 01/21/21 13:31 90 01/21/21 11:32 36.7 C 53 L 19 92/56 L 99 01/21/21 11:19 53 L 16 95 01/21/21 07:24 36.7 C 40 L 18 115/59 L 100 01/21/21 04:10 50 L 20 95 01/21/21 03:43 36.5 C 57 L 20 132/54 L 93 PG Care Time/CCT Total # of Minutes Spent Total Time Spent with Patient: Total time spent is greater than 50% in coordination of care (as documented) at patient's floor/unit and/or counseling patient: Coding Level of Care Code 50232 Subseq Hosp Care Lvl 2 Diagnoses Pneumonia due to COVID-19 virus U07.1; J12.82 Hypoxia R09.02 Hypertension I10 Hypertension type: essential hypertension Saddle anesthesia R20.0 Uncontrolled type 2 diabetes mellitus with hyperglycemia E11.65 CAD (coronary artery disease) I25.10 Coronary Disease-Associated Artery/Lesion type: [place] artery [place] vs. transplanted heart: [place] heart Associated angina: without angina Peripheral neuropathy G63 Peripheral neuropathy type: polyneuropathy associated with underlying disease Chronic venous insufficiency I87.2 GERD (gastroesophageal reflux disease) K21.9 Fibromyalgia M79.7 Anxiety F41.9 DVT prophylaxis Z29.9 (1) Hypertension Hypertension type: essential hypertension Qualified Code(s): I10 - Essential (primary) hypertension (2) CAD (coronary artery disease) Coronary Disease-Associated Artery/Lesion type: [place] artery [place] vs. transplanted heart: [place] heart Associated angina: without angina Qualified Code(s): I25.10 - Atherosclerotic heart disease of [place] coronary artery without angina pectoris (3) Peripheral neuropathy Peripheral neuropathy type: polyneuropathy associated with underlying disease Qualified Code(s): G63 - Polyneuropathy in diseases classified elsewhere
[2021-01-21] MEDS: REMDESIVIR 100 MG in SODIUM CHLORIDE 0.9% 230 ML IV SCH (19:33)
[2021-01-21] MEDS: ATORVASTATIN 40 MG TAB PO SCH (20:30)
[2021-01-21] MEDS: MONTELUKAST SODIUM 10 MG TABLET PO SCH (20:31)
[2021-01-21] MEDS: SODIUM CHLORIDE 0.9% 10ML FLUSH IV SCH (20:43)
[2021-01-22 06:33] LABS: Hematocrit (blood only) 38.2 % (37-47); Hemoglobin 12.6 g/dL (12.0-16.0); Mean Corpuscular Hemoglobin 26.3 pg (25-34); Mean Corpuscular Volume 79.7 fL (80-100); Mean Platelet Volume 10.4 fL (7.4-10.4); Nucleated RBC # (auto) 0.03 K/uL (0-0); Nucleated RBC % (auto) 0.3 %; Platelet Count 284 K/uL (130-400); RDW Coefficient of Variation 14.6 % (11.5-14.5); RDW Standard Deviation 42.9 fL (36.4-46.3); Red Blood Count 4.79 M/uL (4.2-5.4)
[2021-01-22 07:11] LABS: BUN Creatinine Ratio 24.7 (10-20); Calcium 8.8 mg/dl (8.5-10.1); Creatinine Clr Calc Pharmacy 74.8 ml/min; Est GFR (African American) 67.8 ml/min; Est GFR (Non-African American) 58.5 ml/min; Magnesium 2.7 mg/dl (1.8-2.4)
[2021-01-22] MEDS: INSULIN ASPART 100 UNITS/ML 3 ML PEN SC SCH ×2 (09:00→13:22)
[2021-01-22] MEDS: INSULIN GLARGINE SOLOSTAR 100 UNITS/ML 3 ML PEN SC SCH (09:01)
[2021-01-22] MEDS: INSULIN HUMAN NPH SC SCH (09:04)
[2021-01-22] MEDS: dexAMETHasone 6 MG in SYRINGE 0 ML IV SCH (09:06)
[2021-01-22] MEDS: CHOLECALCIFEROL 1,000 UNITS 25 MCG TAB PO SCH (09:06)
[2021-01-22] MEDS: GABAPENTIN 400 MG CAP PO SCH ×2 (09:06→13:24)
[2021-01-22] MEDS: DULoxetine HCL 60 MG CAP PO SCH (09:07)
[2021-01-22] MEDS: CLOPIDOGREL BISULFATE 75 MG TAB PO SCH (09:07)
[2021-01-22] MEDS: ASPIRIN 81 MG ECTAB PO SCH (09:07)
[2021-01-22] MEDS: FAMOTIDINE 20 MG TAB PO SCH (09:08)
[2021-01-22] MEDS: FLUTICASONE PROPIONATE NA SPR 16 GM BTL SCH (09:08)
[2021-01-22] MEDS: ENOXAPARIN INJ 40 MG/0.4 ML SYR SQ SCH (09:08)
[2021-01-22] MEDS: PANTOprazole 40 MG TAB PO SCH (09:09)
[2021-01-22] MEDS: FLUTICASONE/VILANTEROL 200/25MCG 14 PUFFS/INHALER INH SCH (09:09)
[2021-01-22] MEDS: ALBUT/IPRATROP 3MG/0.5MG NEB 3 ML VIAL NEB PRN (10:12)
[2021-01-22] MEDS ORDERED: TORSEMIDE 10 MG TAB PO STA (12:26)
--- NOTE | 2021-01-22 14:54 | Pharmacy Report ---
Pharmacy Glycemic Short Note 2 - Date of Service January 22, 2021 - Glycemic Short BSG Results (Last 24 hours): 01/21/21 01/21/21 01/22/21 16:04 20:41 05:50 Glucose 114 H POC Glucose 182 H 230 H 01/22/21 01/22/21 08:08 11:56 Glucose POC Glucose 129 H 124 H OUTPATIENT ANTIDIABETIC REGIMEN: * Lantus 63 units SQ daily in AM * Regular insulin 12-16 units SQ BIDM * A1c = 8.4% on 01/19/21 ASSESSMENT: 01/22 * BSGs 60-348-875-230 mg/dL yesterday- did trend up throughout day, however was 124 mg/dL at lunch today so will continue to monitor with current parameters * Fasting this AM 129 mg/dL will continue home dose of lantus * Continue NPH with dexamethasone 01/20 * Patient was transitioned off of insulin infusion this morning, tightened regular insulin parameters * Continued Lantus home dose with addition of 0.4 units/kg NPH to cover the dexamethasone 6 mg patient is receiving * Patient's BSG was elevated at lunch, however suspect that the regular insulin had not fully taken effect. Will switch to novolog to have a faster onset 01/19 * 60yo T2DM female with above goal range A1c. Previous A1c was 7.6% 06/22/20; now up to 8.4% (may be elevated secondary to ongoing recent illness with COVID- 19?) * Pt with SEVERE hyperglycemia on admission. Hyperglycemia a porduct of illness and high dose steroids for COVID. Pt initially refusing all additional insulin orders but agreed early this morning to start an insulin infusion and take her outpatient Lantus dosing * Pt will continue on Dexamethasone 6mg IV daily --> will need 0.4 units/kg NPH to cover this high dose steroid in addition to her baseline SQ basal bolus insulin needed. * Continue IV insulin infusion per protocol (currently running at 4 units/hr). Since multiple long acting SQ insulin doses are being given (NPH & Lantus) can DC IV insulin infusion when held per calculator AND the rate has tapered to 1 unit/hr or below. PLAN FOR INPATIENT GLYCEMIC CONTROL: * Basal insulin * Lantus 63 units SQ daily AM * Steroid induced hyperglycemia * NPH 47 units (0.4 units/kg) sq daily in AM given with dexamethasone (hold NPH if dex held or dc) * Bolus insulin (to start when insulin infusion dc) * NovoLog per scale ACHS or Q6hrs while NPO * Goal Range: Low 110 mg/dL - High 140 mg/dL * Correction Factor: 9 mg/dL/unit * Nutritional / Prandial insulin per carb ratio of 1 unit per 3 grams CHO consumed PLAN FOR DISCHARGE: * TBD
--- NOTE | 2021-01-22 18:19 | Discharge Summary ---
Date of Service January 22, 2021 Admission HPI Per Admitting Provider Kylee Harrington is a 60-year-old female with PMH of DM2 with peripheral neuropathy, HTN, HLD, CAD, depression,, osteoarthritis, GERD, asthma, fibromyalgia, seasonal allergies who comes to [facility] due to worsening symptoms in the setting of her recent COVID-19 diagnosis. She was diagnosed with COVID-19 last 01/11/2021. She mentions that since her diagnosis she has been febrile and steadily worsening. Specifically, she says she has felt much weaker than usual to the point of needing to hold on to the martin for ambulation. She has also had worsening dry cough and shortness of breath. Reports being very sweaty. Also has diarrhea and reports various episodes of urinary incontinence. Her is also exhibiting symptoms and came into the ED today with with her, they are both in the room upon my evaluation. The patient and her are both fully COVID vaccinated with Pfizer vaccine as of May 2020. Upon arrival at the emergency room, patient was found to have oxygen saturation of 85% on room air. She was started on oxygen via nasal cannula, and on my evaluation is saturating at 97% on 3 L. She received acetaminophen 1000 mg, Decadron 6 mg IV x1. Chest x-ray in the ED showed patchy bilateral airspace opacities and interstitial thickening, favoring a viral pneumonia. Lab work showed a white count of 12.68, normal hemoglobin, normal platelets. VBG was un remarkable. Electrolytes nonconcerning, troponin negative, lactate normal 1.6. Principal Diagnosis Covid-19 pneumonia Discharge Exam Constitutional WD/WN, vitals as above Eyes EOM intact bilaterally; no conjunctival abnormality ENMT external ear and nose normal, oropharynx normal Neck trachea midline, no thyromegaly normal visual inspection Respiratory + labored breathing, + cough and + tachypneic; no respiratory distress Cardiovascular RRR, no murmur, no edema Rate/Rhythm: regular rhythm and + bradycardic Heart Sounds: normal S1 and normal S2 Gastrointestinal (Abdomen) Inspection/Auscultation: abdomen normal to inspection; abdomen not distended Musculoskeletal no cyanosis or clubbing, extremities motor strength 5/5 (Legs with good strength in all muscle groups.) Skin no rashes, warm and dry Neurologic moves all extremities and awake Motor/Sensory: no sensory deficit (Light touch seems intact/at baseline to my exam.) Psychiatric Orientation: alert, oriented to person and cooperative Discharge Data Allergies Allergy/AdvReac Type Severity Reaction Status Date / Time Sulfa (Sulfonamide Allergy Intermediate RASH Verified 01/19/21 07:25 Antibiotics) fluticasone AdvReac Intermediate Tachycardia, Verified 01/18/21 20:03 [From Advair Diskus] palpitations salmeterol AdvReac Intermediate Tachycardia, Verified 01/18/21 20:03 [From Advair Diskus] palpitations Consultations 01/18/21 20:13 ED Decision to Admit Stat Ordered Studies 01/18/21 18:12 CT angio chest PE protocol Urgent 01/19/21 10:35 MR lumbar spine wo con Stat Hospital Course (1) Pneumonia due to COVID-19 virus: Initially diagnosed 01/11/21 per patient. - Initiated remdesivir (End date: 01/22) - Continue dexamethasone 6 mg IV daily (End date: 01/27) - Not a candidate for tocilizumab or baricitinib at present (not on high flow or greater O2) - Supplement O2 as needed -> On room air at rest on discharge; 2L with exertion. I did end her dexamethasone early. With her significant insulin needs and overall rapid improvement, I felt that continuing course of dexamethasone would provide little benefit and cause hyperglycemia. Will follow up with PCP after isolation to see how she is doing. (2) Hypoxia: Due to Covid. - As above (3) Hypertension: Usually controlled with low-dose ACEi. Presently more with hypotension (BP generally has been in normal range in outpatient visits: 110/55 - 130/70.) - Held ACEi while inpatient. -> Discussed with cardiology on 01/20. Feels that HR in the 40 - 50 range should not cause appreciable hypotension. Patient without symptoms. -> Restarted ACEi on discharge. - Patient felt she had significant swelling in feet/ankles on the day of discharge. She insisted on restarting her torsemide as well. I appreciated very little swelling in feet/toes and none by the pal. However, per patient's wishes, she was restarted on her home torsemide. (4) Saddle anesthesia: Patient reported to me on 01/19 that she had had saddle anesthesia (numbness with wiping), bladder incontinence, and subjective changes to strength and sensation of lower extremities for the last 4-5 days. - Discussed with Dr. Hay who reviewed the lumbar MRI from 01/20 - In agreement with radiology read that there is no cord compression or acute issue. - Patient's bladder incontinence seems longer-standing. She has a bladder sling and has had prior incontinence, so this is tough to compare to baseline. Likewise, strength in LEs is 5/5 and has been stable. - Stable during admission. Possibly piriformis syndrome or other atypical radiculopathy. Dr. Hay was not on consult (not in hospital), so he could not consult in person. Referral to him given on discharge for follow-up as outpatient. (5) Uncontrolled type 2 diabetes mellitus with hyperglycemia: A1c was 8.4% this admission, increasing from prior checks. - Glycemic pharmacist consulted for high insulin needs, illness, and steroids. -> Blood sugars 90 - 300 over last 24 hours. - Return to home dosing as we stopped steroids on discharge. (6) CAD (coronary artery disease): CAD s/p LCx/OM PCI with 2 stents in 04/2020. No angina today. - Continue ASA/Plavix, statin - Return to ACEi on discharge. - Not on beta-kali at baseline for bradycardia (7) Peripheral neuropathy: Unclear etiology. I do not see reference in PCP's notes. - Continue home gabapentin 400 mg PO TID (8) Chronic venous insufficiency: Well-controlled with stockings/hose. - Torsemide as above (9) GERD (gastroesophageal reflux disease): - Continue home PPI and H2 blockers (10) Fibromyalgia: - Continue home duloxetine (11) Anxiety: Often quite tearful on interview. - Continue home duloxetine - Ativan PRN (12) DVT prophylaxis: Lovenox 40 mg SQ daily Total Time Total Time Spent Total Time Spent (In Minutes): 35 Discharge Plan Discharge Items Patient Disposition: Home - Self-Care Reason For Visit: COVID-19 PNA Discharge Diagnosis: Covid-19 pneumonia Activity: Resume your previous activity Non-emergency contact: Primary Care Provider Call non-emergency contact if: your symptoms worsen Follow-up/Referrals: Rene Escudero MD [Physician] - 02/17/21 4:00 pm (Please see Dr. Escudero in 1-2 weeks for a diabetes check.) Hoa Mcneil, DO [Primary Care Provider] - 02/02/21 9:20 am (Telephone visit with MD) Diet: Carb Consistent or DM2 Addtl Attending Provider Instructions: You were admitted to the hospital with Covid-19 pneumonia. This really stinks because you ended up having a breakthrough infection despite your vaccination. Luckily, you never needed high-level oxygen or a breathing tube which are the most dreaded complications. We are sending you home on nasal cannula oxygen to use as your lungs heal. You are able to get a booster Covid shot at any time, so after your isolation, please do get that. You also noted to us some bottom numbness. We did an MRI which did not show pressure or damage to the nerves; however, this doesn't mean you may not have some level of radiculopathy (irritation) of the nerves which could be causing this. You did/do not need emergency back surgery, but you will have to see Dr. Hay or another spinal doctor in the office to determine if further injections, physical therapy, or some other modality may help. You were on a special, "extra" insulin while you were here because you were on steroids. You finished your steroid course and your sugars should go back to normal as it will fade from your system over today and overnight. However, please check your sugars a bit extra carefully over the next few days, and please check in with Dr. Escudero in a week or so to make sure your diabetes is under control. Pending Studies at Discharge: No Stand-Alone Forms: [facility], Work/School Release, Smoking Cessation Medications and DC Order Prescriptions: Continued fluticasone propionate [Flonase Allergy Relief] 50 mcg/actuation spray,suspension 2 sprays INTNAS QAM RF: 0 torsemide 20 mg tablet 10 mg PO QAM Qty: 45 RF: 1 gabapentin 400 mg capsule 400 mg PO TID Qty: 90 RF: 5 montelukast [Singulair] 10 mg tablet 10 mg PO QPM Qty: 90 RF: 3 ramipril [Altace] 2.5 mg capsule 2.5 mg PO PM Qty: 90 RF: 1 Novolin R Flexpen 100 unit/mL (3 mL) insulin pen See Rx Instructions subcut TID Qty: 30 RF: 1 Breo Ellipta 200-25 mcg/dose blister with device 1 inh inhalation QAM Qty: 60 RF: 5 metformin 500 mg tablet extended release 24 hr 1,000 mg PO BID Qty: 180 RF: 1 levalbuterol HCl [Xopenex] 1.25 mg/3 mL solution for nebulization 1.25 mg INH TID PRN (Reason: shortness of breath or wheezing) Qty: 72 RF: 3 levalbuterol tartrate [Xopenex HFA] 45 mcg/actuation HFA aerosol inhaler 1 - 2 puff INH Q4H PRN (Reason: shortness of breath) Qty: 15 RF: 3 metoclopramide HCl [Reglan] 10 mg tablet 10 mg PO QID Qty: 120 RF: 5 duloxetine 60 mg capsule,delayed release(DR/EC) 60 mg PO DAILY RF: 0 tramadol 50 mg tablet See Rx Instructions PO TID PRN (Reason: pain) Qty: 30 RF: 0 ibuprofen 600 mg tablet 600 mg PO TID PRN (Reason: Pain) RF: 0 atorvastatin 80 mg tablet 80 mg PO HS Qty: 90 RF: 3 clopidogrel 75 mg tablet 75 mg PO DAILY Qty: 90 RF: 3 Lantus Solostar U-100 Insulin 100 unit/mL (3 mL) insulin pen 63 unit subcut QAM RF: 0 tizanidine 4 mg capsule 4 mg PO HS PRN (Reason: Spasms) Qty: 30 RF: 1 Premarin 0.625 mg/gram cream 0.625 mg Vaginal WEEKLY Qty: 30 RF: 0 Coricidin HBP Chest Matthew-Cough 10-200 mg capsule 1 tab-cap PO Q8H PRN (Reason: Congestion) RF: 0 cetirizine [Zyrtec] 10 mg tablet 10 mg PO DAILY PRN (Reason: allergies) RF: 0 Baqsimi 3 mg/actuation spray,non-aerosol 3 mg intranasal ONCE Qty: 2 RF: 5 aspirin 81 mg tablet,delayed release (DR/EC) 81 mg PO DAILY Qty: 30 RF: 11 nitroglycerin 0.4 mg tablet, sublingual 0.4 mg sublingual Q5M PRN (Reason: chest pain) Qty: 30 RF: 3 erythromycin 500 mg tablet 500 mg PO TID RF: 0 cholecalciferol (vitamin D3) 5,000 unit capsule 5,000 units PO QAM RF: 0 gentamicin 0.1 % cream 1 appln topical DAILY PRN (Reason: AFFECTED AREA) Qty: 1 RF: 0 acetaminophen 500 mg Capsule 1,000 mg PO TID PRN (Reason: Pain) RF: 0 esomeprazole magnesium [Nexium] 40 mg capsule,delayed release(DR/EC) 40 mg PO BID RF: 0 clotrimazole-betamethasone 1-0.05 % cream 1 appln topical BID PRN (Reason: Skin Irritation) RF: 0 vitamin B complex Tablet 1 tab PO BID RF: 0 coQ10 (ubiquinol) 200 mg Capsule 200 mg PO BID RF: 0 famotidine 20 mg tablet 20 mg PO BID RF: 0 Discharge Orders: Discharge Order (Routine); Ordered 01/22/21 Ordered By: Jaxson Dewitt/Other Patient Handouts: Disinfecting Your Home of COVID-19 Admission Data Admit Date/Time: 01/18/21 20:40 Attending Provider: Jaxson Oakes Admit Provider: Keenan Hinton Primary Care Provider: Hoa Mcneil Other Providers: Jaxson Oakes ; Homar Emery Other Interventions: Discharge Summary Assessment (RN) Last Done: 01/22/21 12:42 Coding Level of Care Code D/C DAY MANAGEMENT >30 MINS Diagnoses Pneumonia due to COVID-19 virus U07.1; J12.82 Hypoxia R09.02 Hypertension I10 Hypertension type: essential hypertension Saddle anesthesia R20.0 Uncontrolled type 2 diabetes mellitus with hyperglycemia E11.65 CAD (coronary artery disease) I25.10 Coronary Disease-Associated Artery/Lesion type: [place] artery [place] vs. transplanted heart: [place] heart Associated angina: without angina Peripheral neuropathy G63 Peripheral neuropathy type: polyneuropathy associated with underlying disease Chronic venous insufficiency I87.2 GERD (gastroesophageal reflux disease) K21.9 Fibromyalgia M79.7 Anxiety F41.9 DVT prophylaxis Z29.9
== END 2021-01-22 16:30 | disposition home or self-care (01) | DRG 177 ==
LOC: ED 15:27 → 2S 20:40 → SUATTDRO 20:40 → 2S 01-19 00:32 → 2E 01-19 23:37 → 3W 01-21 13:56
DX: J45.909 Unspecified asthma, uncomplicated; I87.2 Venous insufficiency (chronic) (peripheral); R40.0 Somnolence; Z79.82 Long term (current) use of aspirin; J96.01 Acute respiratory failure with hypoxia; E11.43 Type 2 diabetes mellitus with diabetic autonomic (poly)neuropathy; Z79.02 Long term (current) use of antithrombotics/antiplatelets; K21.9 Gastro-esophageal reflux disease without esophagitis; R32 Unspecified urinary incontinence; E11.51 Type 2 diabetes mellitus with diabetic peripheral angiopathy without gangrene; J12.82 Pneumonia due to coronavirus disease 2019; Z95.5 Presence of coronary angioplasty implant and graft; T42.4X5A Adverse effect of benzodiazepines, initial encounter; R00.1 Bradycardia, unspecified; U07.1 COVID-19; I10 Essential (primary) hypertension; Z83.3 Family history of diabetes mellitus; I25.10 Atherosclerotic heart disease of native coronary artery without angina pectoris; R20.0 Anesthesia of skin; M54.10 Radiculopathy, site unspecified; R53.1 Weakness; M79.7 Fibromyalgia; F32.9 Major depressive disorder, single episode, unspecified; F41.9 Anxiety disorder, unspecified